=== PATIENT | female | born 1930 | race African-American/Black ===

== ENCOUNTER 2018-12-19 14:08 | Inpatient (IN) | payer MEDICARE ==
--- NOTE | 2018-12-19 14:21 | Emergency Department Report ---
Blank Doc - Documentation Documentation: 88 y o female presents to ed cc dizziness x 1 week also cc of coughing x 1 week hx of dementia grandon here acting as central service technician
--- NOTE | 2018-12-19 14:49 | Cat Scan Report ---
CT HEAD WITHOUT CONTRAST: HISTORY: Dizziness. TECHNIQUE: Sequential CT images without contrast. FINDINGS: Images obtained show bilateral prominence of the sulci and ventricles. There are no abnormal intra- or extra-axial blood or fluid collections. There are no focal masses or evidence of mass effect. The olsen white matter differentiation appears within normal limits. Regions of periventricular decreased attenuation are consistent with microangiopathic ischemic disease. The posterior fossa structures including the fourth ventricle, cerebellum, and brainstem appear normal. IMPRESSION: Evidence of atrophy and microangiopathic ischemic disease. No acute intracranial process noted.
[2018-12-19] MEDS ORDERED: NACL 0.9% 1000 ML IV ONE (15:05)
--- NOTE | 2018-12-19 15:26 | XRay Report ---
ROUTINE CHEST, TWO VIEWS: HISTORY: Lightheadedness, dizziness. Mild cardiomegaly and mild pulmonary venous congestion are identified. No obvious infiltrate, pleural effusion or pneumothorax. IMPRESSION: Mild cardiomegaly and pulmonary venous congestion.
[2018-12-19 15:34] LABS: Hematocrit 40.2 % (30.3-42.9); Hemoglobin 13.5 gm/dl (10.1-14.3); Mean Corpuscular HGB Conc 34 % (30-34); Mean Corpuscular Volume 94 fl (79-97); Red Blood Count 4.27 M/mm3 (3.65-5.03); Red Cell Distribution Width 15.3 % (13.2-15.2)
[2018-12-19 15:36] LABS: Platelet Count 275 K/mm3 (140-440)
[2018-12-19 15:49] LABS: Albumin 3.3 g/dL (3.9-5); BUN/Creatinine Ratio 22; Blood Urea Nitrogen 13 mg/dL (7-17); Calcium 8.9 mg/dL (8.4-10.2); Hemolysis Index 179
[2018-12-19 15:50] LABS: Alanine Aminotransferase 23 units/L (7-56)
[2018-12-19] MEDS: ROCEPHIN/NS 2 GM/100 ML 2 GM/100 ML BAG IV SCH (15:53)
[2018-12-19 16:11] LABS: Band Neutrophils # (Manual) 0.1 K/mm3; Basophils % (Manual) 0 % (0.0-1.8); Total Cells Counted 100
[2018-12-19 16:12] LABS: Anisocytosis 1+; Poikilocytosis Few
[2018-12-19 16:49] LABS: Bilirubin,Urine NEG (Negative); Blood,Urine NEG (Negative); Color,Urine Yellow (Yellow); Protein,Urine <15 mg/dL mg/dL (Negative); RBC,Urine < 1.0 /HPF (0.0-6.0); Urobilinogen,Urine < 2.0 mg/dL (<2.0)
[2018-12-19] MEDS ORDERED: PROVENTIL IH ONE (16:52)
[2018-12-19] MEDS ORDERED: ATROVENT IH ONE (16:52)
--- NOTE | 2018-12-19 16:55 | Emergency Department Report ---
ED General Adult HPI - General Chief complaint: Dizziness Stated complaint: LUNG PROBLEMS Time Seen by Provider: 12/19/18 14:16 Source: patient Mode of arrival: Ambulatory Limitations: Language Barrier - History of Present Illness Initial comments: Patient is a 88-year-old Yi woman who is complaining of one-week of cough and congestion with fever. Patient's cough is nonproductive. Patient also is complaining of some dizziness with standing. It is unknown whether the patient has a fever there's been no nausea vomiting. - Related Data Previous Rx's Medication Instructions Recorded Last Taken Type Aspirin EC [Aspirin Enteric Coated 81 mg PO QDAY #30 tablet.dr 06/29/13 Unknown Rx TAB] Bisoprolol [Zebeta] 5 mg PO DAILY #30 06/29/13 Unknown Rx Bisoprolol [Zebeta] 5 mg PO DAILY #30 tablet 06/29/13 Unknown Rx Simvastatin [Zocor TAB] 10 mg PO QHS #30 tablet 06/29/13 Unknown Rx Albuterol Sulfate [Ventolin HFA] 2 puff IH Q4H PRN #1 hfa.aer.ad 09/24/13 Unknown Rx Meclizine [Antivert] 25 mg PO Q8H PRN #20 tablet 09/24/13 Unknown Rx levoFLOXacin [Levaquin] 750 mg PO QDAY #7 tablet 09/24/13 Unknown Rx Allergies Allergy/AdvReac Type Severity Reaction Status Date / Time No Known Allergies Allergy Verified 12/19/18 14:13 ED Review of Systems ROS: Stated complaint: LUNG PROBLEMS Other details as noted in HPI Comment: All other systems reviewed and negative ED Past Medical Hx - Past Medical History Previous Medical History?: Yes Hx Hypertension: Yes Hx Heart Attack/AMI: No Hx Congestive Heart Failure: No Hx Diabetes: No Hx Deep Vein Thrombosis: No Hx Pulmonary Embolism: No Hx Liver Disease: No Hx Renal Disease: No Hx Sickle Cell Disease: No Hx Arthritis: No Hx Seizures: No Hx Kidney Stones: No Hx Asthma: No Hx COPD: No Hx Tuberculosis: No Hx Dementia: No Hx HIV: No Additional medical history: Recurrent ear infections, DEMENTIA - Surgical History Past Surgical History?: Yes Hx Coronary Stent: No Hx Pacemaker: No Hx Internal Defibrillator: No Additional Surgical History: cataracts - Social History Smoking Status: Never Smoker Substance Use Type: None - Medications Home Medications: Home Medications Medication Instructions Recorded Confirmed Last Taken Type Aspirin EC [Aspirin Enteric Coated 81 mg PO QDAY #30 tablet.dr 06/29/13 09/24/13 Unknown Rx TAB] Bisoprolol [Zebeta] 5 mg PO DAILY #30 06/29/13 09/24/13 Unknown Rx Bisoprolol [Zebeta] 5 mg PO DAILY #30 tablet 06/29/13 09/24/13 Unknown Rx Simvastatin [Zocor TAB] 10 mg PO QHS #30 tablet 06/29/13 09/24/13 Unknown Rx Albuterol Sulfate [Ventolin HFA] 2 puff IH Q4H PRN #1 hfa.aer.ad 09/24/13 Unknown Rx Meclizine [Antivert] 25 mg PO Q8H PRN #20 tablet 09/24/13 Unknown Rx levoFLOXacin [Levaquin] 750 mg PO QDAY #7 tablet 09/24/13 Unknown Rx ED Physical Exam - General Limitations: Language Barrier General appearance: alert, in no apparent distress - Head Head exam: Present: atraumatic, normocephalic - Eye Eye exam: Present: normal appearance - ENT ENT exam: Present: mucous membranes moist - Neck Neck exam: Present: normal inspection - Respiratory Respiratory exam: Present: normal lung sounds bilaterally, wheezes. Absent: respiratory distress, rales, rhonchi - Cardiovascular Cardiovascular Exam: Present: regular rate, normal rhythm. Absent: systolic murmur, diastolic murmur, rubs, gallop - GI/Abdominal GI/Abdominal exam: Present: soft, normal bowel sounds. Absent: distended, tenderness, guarding - Extremities Exam Extremities exam: Present: normal inspection - Back Exam Back exam: Present: normal inspection - Neurological Exam Neurological exam: Present: alert, oriented X3 - Psychiatric Psychiatric exam: Present: normal affect, normal mood - Skin Skin exam: Present: warm, dry, intact, normal color. Absent: rash ED Course Vital Signs 12/19/18 12/19/18 12/19/18 14:27 15:04 15:15 Temperature 100.2 F H Pulse Rate 107 H Respiratory 16 Rate Blood Pressure 171/91 160/86 O2 Sat by Pulse 97 98 97 Oximetry ED Medical Decision Making - Lab Data Result diagrams: 12/19/18 15:20 12/19/18 15:20 Lab Results 12/19/18 12/19/18 12/19/18 Range/Units 14:55 15:20 15:20 WBC 10.9 (4.5-11.0) K/mm3 RBC 4.27 (3.65-5.03) M/mm3 Hgb 13.5 (10.1-14.3) gm/dl Hct 40.2 (30.3-42.9) % MCV 94 (79-97) fl MCH 32 (28-32) pg MCHC 34 (30-34) % RDW 15.3 H (13.2-15.2) % Plt Count 275 (140-440) K/mm3 Add Manual Diff Complete Total Counted 100 Seg Neuts % (Manual) 76.0 H (40.0-70.0) % Band Neutrophils % 1.0 % Lymphocytes % (Manual) 12.0 L (13.4-35.0) % Reactive Lymphs % (Man) 0 % Monocytes % (Manual) 10.0 H (0.0-7.3) % Eosinophils % (Manual) 1.0 (0.0-4.3) % Basophils % (Manual) 0 (0.0-1.8) % Metamyelocytes % 0 % Myelocytes % 0 % Promyelocytes % 0 % Blast Cells % 0 % Nucleated RBC % Not Reportable Seg Neutrophils # Man 8.3 H (1.8-7.7) K/mm3 Band Neutrophils # 0.1 K/mm3 Lymphocytes # (Manual) 1.3 (1.2-5.4) K/mm3 Abs React Lymphs (Man) 0.0 K/mm3 Monocytes # (Manual) 1.1 H (0.0-0.8) K/mm3 Eosinophils # (Manual) 0.1 (0.0-0.4) K/mm3 Basophils # (Manual) 0.0 (0.0-0.1) K/mm3 Metamyelocytes # 0.0 K/mm3 Myelocytes # 0.0 K/mm3 Promyelocytes # 0.0 K/mm3 Blast Cells # 0.0 K/mm3 WBC Morphology Not Reportable Hypersegmented Neuts Not Reportable Hyposegmented Neuts Not Reportable Hypogranular Neuts Not Reportable Smudge Cells Not Reportable Toxic Granulation Not Reportable Toxic Vacuolation Not Reportable Dohle Bodies Not Reportable Pelger-Huet Anomaly Not Reportable Emily Rods Not Reportable Platelet Estimate Appears normal Clumped Platelets Not Reportable Plt Clumps, EDTA Not Reportable Large Platelets Not Reportable Giant Platelets Not Reportable Platelet Satelliting Not Reportable Plt Morphology Comment Not Reportable RBC Morphology Not Reportable Dimorphic RBCs Not Reportable Polychromasia Not Reportable Hypochromasia Not Reportable Poikilocytosis Few Anisocytosis 1+ Microcytosis Not Reportable Macrocytosis Not Reportable Spherocytes Not Reportable Pappenheimer Bodies Not Reportable Sickle Cells Not Reportable Target Cells Not Reportable Tear Drop Cells Not Reportable Ovalocytes Not Reportable Helmet Cells Not Reportable [place] Bodies Not Reportable [place] Rings Not Reportable Yesenia Cells Not Reportable Bite Cells Not Reportable Crenated Cell Not Reportable Elliptocytes Not Reportable Acanthocytes (Spur) Not Reportable Rouleaux Not Reportable Hemoglobin C Crystals Not Reportable Schistocytes Not Reportable Malaria parasites Not Reportable Darwin Bodies Not Reportable Hem Pathologist Commnt No Sodium 130 L (137-145) mmol/L Potassium 5.6 H (3.6-5.0) mmol/L Chloride 92.1 L (98-107) mmol/L Carbon Dioxide 25 (22-30) mmol/L Anion Gap 19 mmol/L BUN 13 (7-17) mg/dL Creatinine 0.6 L (0.7-1.2) mg/dL Estimated GFR > 60 ml/min BUN/Creatinine Ratio 22 % Glucose 93 (65-100) mg/dL Lactic Acid (0.7-2.0) mmol/L Calcium 8.9 (8.4-10.2) mg/dL Total Bilirubin 0.50 (0.1-1.2) mg/dL AST 47 H (5-40) units/L ALT 23 (7-56) units/L Alkaline Phosphatase 59 (35-129) units/L Total Protein 7.7 (6.3-8.2) g/dL Albumin 3.3 L (3.9-5) g/dL Albumin/Globulin Ratio 0.8 % Urine Bilirubin Neg (Negative) Urine RBC (Auto) < 1.0 (0.0-6.0) /HPF U Epithel Cells (Auto) 1.0 (0-13.0) /HPF 12/19/18 Range/Units 15:20 WBC (4.5-11.0) K/mm3 RBC (3.65-5.03) M/mm3 Hgb (10.1-14.3) gm/dl Hct (30.3-42.9) % MCV (79-97) fl MCH (28-32) pg MCHC (30-34) % RDW (13.2-15.2) % Plt Count (140-440) K/mm3 Add Manual Diff Total Counted Seg Neuts % (Manual) (40.0-70.0) % Band Neutrophils % % Lymphocytes % (Manual) (13.4-35.0) % Reactive Lymphs % (Man) % Monocytes % (Manual) (0.0-7.3) % Eosinophils % (Manual) (0.0-4.3) % Basophils % (Manual) (0.0-1.8) % Metamyelocytes % % Myelocytes % % Promyelocytes % % Blast Cells % % Nucleated RBC % Seg Neutrophils # Man (1.8-7.7) K/mm3 Band Neutrophils # K/mm3 Lymphocytes # (Manual) (1.2-5.4) K/mm3 Abs React Lymphs (Man) K/mm3 Monocytes # (Manual) (0.0-0.8) K/mm3 Eosinophils # (Manual) (0.0-0.4) K/mm3 Basophils # (Manual) (0.0-0.1) K/mm3 Metamyelocytes # K/mm3 Myelocytes # K/mm3 Promyelocytes # K/mm3 Blast Cells # K/mm3 WBC Morphology Hypersegmented Neuts Hyposegmented Neuts Hypogranular Neuts Smudge Cells Toxic Granulation Toxic Vacuolation Dohle Bodies Pelger-Huet Anomaly Emily Rods Platelet Estimate Clumped Platelets Plt Clumps, EDTA Large Platelets Giant Platelets Platelet Satelliting Plt Morphology Comment RBC Morphology Dimorphic RBCs Polychromasia Hypochromasia Poikilocytosis Anisocytosis Microcytosis Macrocytosis Spherocytes Pappenheimer Bodies Sickle Cells Target Cells Tear Drop Cells Ovalocytes Helmet Cells [place] Bodies [place] Rings [place] Cells Bite Cells Crenated Cell Elliptocytes Acanthocytes (Spur) Rouleaux Hemoglobin C Crystals Schistocytes Malaria parasites Darwin Bodies Hem Pathologist Commnt Sodium (137-145) mmol/L Potassium (3.6-5.0) mmol/L Chloride (98-107) mmol/L Carbon Dioxide (22-30) mmol/L Anion Gap mmol/L BUN (7-17) mg/dL Creatinine (0.7-1.2) mg/dL Estimated GFR ml/min BUN/Creatinine Ratio % Glucose (65-100) mg/dL Lactic Acid 1.30 (0.7-2.0) mmol/L Calcium (8.4-10.2) mg/dL Total Bilirubin (0.1-1.2) mg/dL AST (5-40) units/L ALT (7-56) units/L Alkaline Phosphatase (35-129) units/L Total Protein (6.3-8.2) g/dL Albumin (3.9-5) g/dL Albumin/Globulin Ratio % Urine Bilirubin (Negative) Urine RBC (Auto) (0.0-6.0) /HPF U Epithel Cells (Auto) (0-13.0) /HPF - Radiology Data interpreted by me: Patient has cardiomegaly. Patient has some pulmonary vascular congestion however there is some patchy infiltrate in the right lower lobe as well as the left lower lobe per my interpretation - Medical Decision Making Patient's x-ray was read as pulmonary vessel congestion with cardiomegaly however clinically the patient likely has infiltrate secondary to pneumonia and not CHF. Patient is febrile with wheeze and cough. Patient was hydrated was started on azithromycin and Rocephin. Patient is given albuterol Atrovent treatment the patient be admitted to the hospitalist service at this time. Critical care attestation.: If time is entered above; I have spent that time in minutes in the direct care of this critically ill patient, excluding procedure time. ED Disposition Clinical Impression: Bronchospasm Pneumonia Qualifiers: Pneumonia type: due to unspecified organism Laterality: bilateral Lung location: lower lobe of lung Qualified Code(s): J18.1 - Lobar pneumonia, unspecified organism Disposition: OP ADMIT IP TO THIS HOSP Is pt being admited?: Yes Does the pt Need Aspirin: No Condition: Stable Instructions: Bacterial Pneumonia (ED)
[2018-12-19] MEDS: ZITHROMAX 500 MG in NACL 0.9% 250ML 250 ML IV SCH (17:04)
[2018-12-19] MEDS ORDERED: NACL 0.9% 500 ML 500 ML ONE (19:14)
[2018-12-19] MEDS ORDERED: NACL 0.9% 1000 ML 1,000 ML ONE (20:04)
[2018-12-19] MEDS: NACL 0.9% 1000 ML 1,000 ML IV SCH (20:10)
[2018-12-19] MEDS ORDERED: TYLENOL PO PRN (21:23)
[2018-12-20] MEDS: NACL 0.9% 1000 ML 1,000 ML IV SCH (05:18)
--- NOTE | 2018-12-20 07:03 | Event Note ---
Date: 12/19/18 See H/p in reports Pneumonia
--- NOTE | 2018-12-20 07:22 | History and Physical Report ---
CHIEF COMPLAINT: Cough and congestion for 1 week associated with fever. HISTORY OF PRESENT ILLNESS: An 88-year-old female with history of hypertension, hyperlipidemia, asthma, who presents with cough, which is nonproductive and congestion and fever of 1 week duration. Has dizziness while standing. The patient has been having fever off and on for the last 1 week. No recent travel. No shortness of breath on lying down. PAST MEDICAL HISTORY: As mentioned, significant for hypertension and recurrent ear infections and mild to moderate dementia. PAST SURGICAL HISTORY: Cataract surgery. No cardiac stents. SOCIAL HISTORY: Does not smoke. FAMILY HISTORY: Hyperlipidemia. REVIEW OF SYSTEMS: Significant for cough, congestion, fever for 1 week duration. No history of congestive heart failure. A 14-point review of systems is done. CURRENT MEDICATIONS: Simvastatin 10 mg daily, bisoprolol 5 mg daily and aspirin 81 mg daily, albuterol inhaler 2 puffs q.i.d. PHYSICAL EXAMINATION: GENERAL: Elderly female lying comfortably. VITAL SIGNS: Temperature 100.1, pulse is 102, respirations are 17, sats are 95%, blood pressure 127/73. HEENT: Unremarkable. Pupils equal and reactive. NECK: Supple, no lymphadenopathy, no thyromegaly. LUNGS: Clear to auscultation and percussion. Scattered rhonchi. CARDIOVASCULAR: S1, S2 heard. No gallop, no murmur, no rub. Apical impulse in left fifth intercostal space and midclavicular line. ABDOMEN: Soft and benign. No hepatosplenomegaly. No guarding, no rigidity. Hernial orifices are normal. EXTREMITIES: Good pedal pulses. No pedal edema. CENTRAL NERVOUS SYSTEM: Alert and oriented x 4, nonfocal exam. SKIN: Normal. LABORATORY DATA: Significant for white count of 10,900, H and H is 13.5 and 40.2, platelet count is 275,000. Sodium is 130, potassium is 5.6, chloride is 92, BUN and creatinine is 39 and 0.6. Urine is normal. Chest x-ray shows mild cardiomegaly and pulmonary venous congestion. The head CT was normal. Evidence of atrophy and microangiopathic ischemic disease. EKG shows sinus tachycardia, heart rate of 107 per minute. ASSESSMENT AND PLAN: 1.Pneumonia. History is in favor of pneumonia. No congestive heart failure. We will get echocardiogram for ejection fraction. In the meantime, the patient will be treated as pneumonia with IV antibiotics, ceftriaxone, Zithromax. DuoNeb on a p.r.n. basis. 2. Hyperkalemia, treated with calcium gluconate and Kayexalate. 3. Hyperlipidemia. Continue statins. 4. Hypertension. Continue amlodipine and bisoprolol. 5. Deep venous thrombosis prophylaxis, Lovenox 30 mg subcutaneous daily and gastrointestinal prophylaxis. JOB# [id number] BERTHA/HELADIO SHAW
[2018-12-20] MEDS ORDERED: PERCOCET 5/325 PO PRN ×2 (07:40→08:00)
[2018-12-20] MEDS ORDERED: ZOFRAN IV PRN (08:00)
[2018-12-20] MEDS ORDERED: SODIUM CHLORIDE FLUSH SYRINGE 10 ML IV PRN (08:00)
[2018-12-20 08:37] LABS: Basophils % (Auto) 0.5 % (0.0-1.8); Eosinophils # (Auto) 0.1 K/mm3 (0.0-0.4); Eosinophils % (Auto) 2.2 % (0.0-4.3); Hematocrit 36.7 % (30.3-42.9); Hemoglobin 12.2 gm/dl (10.1-14.3); Lymphocytes # (Auto) 1.1 K/mm3 (1.2-5.4); Lymphocytes % (Auto) 20.8 % (13.4-35.0); Mean Corpuscular HGB Conc 33 % (30-34); Mean Corpuscular Volume 94 fl (79-97); Monocytes # (Auto) 0.9 K/mm3 (0.0-0.8); Monocytes % (Auto) 15.5 % (0.0-7.3); Platelet Count 229 K/mm3 (140-440); Red Blood Count 3.89 M/mm3 (3.65-5.03); Red Cell Distribution Width 15.3 % (13.2-15.2)
[2018-12-20 08:55] LABS: BUN/Creatinine Ratio 18; Blood Urea Nitrogen 11 mg/dL (7-17); Calcium 7.7 mg/dL (8.4-10.2); Hemolysis Index 13
[2018-12-20] MEDS: ZEBETA PO SCH (09:49)
[2018-12-20] MEDS: PEPCID IV SCH (09:50)
[2018-12-20] MEDS: TYLENOL PO PRN ×2 (09:51→21:41)
[2018-12-20] MEDS: NORVASC PO SCH (09:52)
[2018-12-20] MEDS: ZITHROMAX 500 MG in NACL 0.9% 250ML 250 ML IV SCH (09:52)
[2018-12-20] MEDS ORDERED: BISOPROLOL 5 MG PO SCH (10:00)
[2018-12-20] MEDS ORDERED: LASIX IV SCH (10:00)
[2018-12-20] MEDS: SODIUM CHLORIDE FLUSH SYRINGE 10 ML IV SCH ×2 (10:02→21:35)
--- NOTE | 2018-12-20 10:35 | Consultation ---
History of Present Illness Consult date: 12/20/18 Consult reason: congestive heart failure History of present illness: Patient is an 88 year old [place] woman who was sent to the emergency dep artment with shortness of breath and coughs. Patient has a history of chronic hypertension. There is no prior cardiac history and she has not had any recent cardiac workup. There were no reports of chest pain or palpitations. She has no lower extremity edema. A chest x-ray shows cardiomegaly with suspected right lower lobe infiltrate. An ECG shows sinus tachycardia, otherwise normal ECG. A cardiac consultation was requested for CHF evaluation. Medications and Allergies Allergies Allergy/AdvReac Type Severity Reaction Status Date / Time No Known Allergies Allergy Verified 12/19/18 14:13 Home Medications Medication Instructions Recorded Confirmed Last Taken Type Bisoprolol [Zebeta] 5 mg PO DAILY #30 tablet 06/29/13 12/19/18 Unknown Rx amLODIPine [Norvasc] 5 mg PO DAILY 12/19/18 12/19/18 Unknown History Active Meds: Active Medications Acetaminophen (Tylenol) 650 mg PO Q4H PRN PRN Reason: Pain MILD(1-3)/Fever >100.5/MURILLO Last Admin: 12/20/18 09:51 Dose: 650 mg Documented by: Amlodipine Besylate (Norvasc) 5 mg PO DAILY [facility] Last Admin: 12/20/18 09:52 Dose: 5 mg Documented by: Bisoprolol Fumarate (Zebeta (Nf)) 5 mg PO QDAY [facility] Last Admin: 12/20/18 09:49 Dose: 5 mg Documented by: Famotidine (Pepcid) 20 mg IV QDAY [facility] Last Admin: 12/20/18 09:50 Dose: 20 mg Documented by: Furosemide (Lasix) 40 mg IV Q12H [facility] Last Admin: 12/20/18 09:50 Dose: 40 mg Documented by: Azithromycin 500 mg/ Sodium (Chloride) 250 mls @ 250 mls/hr IV Q24HR [facility]; Protocol Last Admin: 12/20/18 09:52 Dose: 250 mls/hr Documented by: Ceftriaxone Sodium (Rocephin/Ns 2 Gm/100 Ml) 2 gm in 100 mls @ 200 mls/hr IV Q24HR [facility]; Protocol Last Admin: 12/19/18 15:53 Dose: 200 mls/hr Documented by: Ondansetron HCl (Zofran) 4 mg IV Q8H PRN PRN Reason: Nausea And Vomiting Oxycodone/Acetaminophen (Percocet 5/325) 1 tab PO Q6H PRN PRN Reason: Pain, Moderate (4-6) Pravastatin Sodium (Pravachol) 20 mg PO QHS [facility] Sodium Chloride (Sodium Chloride Flush Syringe 10 Ml) 10 ml IV BID [facility] Last Admin: 12/20/18 10:02 Dose: 10 ml Documented by: Sodium Chloride (Sodium Chloride Flush Syringe 10 Ml) 10 ml IV PRN PRN PRN Reason: LINE FLUSH Physical Examination Vital Signs Temp Pulse Resp BP Pulse Ox 100.2 F H 107 H 16 171/91 97 12/19/18 14:27 12/19/18 14:27 12/19/18 14:27 12/19/18 14:27 12/19/18 14:27 General appearance: no acute distress HEENT: Positive: PERRL Cardiac: Positive: Reg Rate and Rhythm Lungs: Positive: Decreased Breath Sounds, Other (RLL crackles ) Results 12/20/18 08:02 12/20/18 08:02 Cardiac Enzymes 12/19/18 Range/Units 15:20 AST 47 H (5-40) units/L CBC 12/19/18 12/20/18 Range/Units 15:20 08:02 WBC 10.9 5.5 (4.5-11.0) K/mm3 RBC 4.27 3.89 (3.65-5.03) M/mm3 Hgb 13.5 12.2 (10.1-14.3) gm/dl Hct 40.2 36.7 (30.3-42.9) % Plt Count 275 229 (140-440) K/mm3 Lymph # 1.1 L (1.2-5.4) K/mm3 Snyder # 0.9 H (0.0-0.8) K/mm3 Eos # 0.1 (0.0-0.4) K/mm3 Baso # 0.0 (0.0-0.1) K/mm3 Comprehensive Metabolic Panel 12/19/18 12/20/18 Range/Units 15:20 08:02 Sodium 130 L 133 L (137-145) mmol/L Potassium 5.6 H 4.1 D (3.6-5.0) mmol/L Chloride 92.1 L 103.0 (98-107) mmol/L Carbon Dioxide 25 21 L (22-30) mmol/L BUN 13 11 (7-17) mg/dL Creatinine 0.6 L 0.6 L (0.7-1.2) mg/dL Glucose 93 88 (65-100) mg/dL Calcium 8.9 7.7 L (8.4-10.2) mg/dL AST 47 H (5-40) units/L ALT 23 (7-56) units/L Alkaline Phosphatase 59 (35-129) units/L Total Protein 7.7 (6.3-8.2) g/dL Albumin 3.3 L (3.9-5) g/dL Assessment and Plan Pneumonia Hypertension Hyponatremia We will obtain an echocardiogram for LVEF assessment.
[2018-12-20] MEDS: ROCEPHIN/NS 2 GM/100 ML 2 GM/100 ML BAG IV SCH (13:57)
--- NOTE | 2018-12-20 15:55 | Progress Note ---
<ANUPAM ROTHMAN - Last Filed: 12/20/18 16:43> Assessment and Plan Assessment and plan: 88-year-old German female with history of HTN, hyperlipidemia, and Asthma presented to ED with c/o nonproductive cough, congestion, and intermittent fever for the past week. Also, she is c/o dizziness with standing. At the time of my examination patient is awake, alert and oriented x3 and sitting at the bedside. On auscultation bibasilar crackles are noted. Her family is also present at the bedside. Pneumonia CXR on 12/19 showed mild cardiomegaly and pulmonary venous congestion WBC on admission 10.9 WBC this morning 5.5 MAXIMUM TEMPERATURE 100.2 On azithromycin and Rocephin Cultures pending- NGTD Continue to monitor WBC Suspicion for CHF CXR on 12/19 showed mild cardiomegaly and pulmonary venous congestion Echo on 12/20 LVEF 55%-60%; mild aortic regurgitation; mild aortic leaflet calcification Hyperlipidemia Continue statin Hypertension Monitor BP Continue antihypertensive medication DVT prophylaxis On Lovenox History Interval history: 88-year-old German female with history of HTN, hyperlipidemia, and Asthma presented to ED with c/o nonproductive cough, congestion, and intermittent fever for the past week. Also, she is c/o dizziness with standing. She was admitted on 12/19 for suspected pneumonia. There were no acute overnight events Hospitalist Physical - Constitutional Vitals: Temp Pulse Resp BP Pulse Ox 99.1 F 108 H 20 142/71 95 12/20/18 13:43 12/20/18 13:43 12/20/18 13:43 12/20/18 13:43 12/20/18 13:43 General appearance: Present: no acute distress - EENT Eyes: Present: PERRL ENT: hearing intact - Neck Neck: Present: supple - Respiratory Respiratory effort: normal Respiratory: bilateral: rales (to bases) - Cardiovascular Rhythm: regular Heart Sounds: Present: S1 & S2 - Extremities Extremities: pulses intact, No edema Peripheral Pulses: within normal limits - Abdominal General gastrointestinal: soft, non-tender - Integumentary Integumentary: Present: warm, dry - Psychiatric Psychiatric: cooperative - Neurologic Neurologic: CNII-XII intact Results - Labs CBC & Chem 7: 12/20/18 08:02 12/20/18 08:02 Labs: Laboratory Last Values WBC 5.5 K/mm3 (4.5-11.0) 12/20/18 08:02 RBC 3.89 M/mm3 (3.65-5.03) 12/20/18 08:02 Hgb 12.2 gm/dl (10.1-14.3) 12/20/18 08:02 Hct 36.7 % (30.3-42.9) 12/20/18 08:02 MCV 94 fl (79-97) 12/20/18 08:02 MCH 31 pg (28-32) 12/20/18 08:02 MCHC 33 % (30-34) 12/20/18 08:02 RDW 15.3 % (13.2-15.2) H 12/20/18 08:02 Plt Count 229 K/mm3 (140-440) 12/20/18 08:02 Lymph % (Auto) 20.8 % (13.4-35.0) 12/20/18 08:02 [place] % (Auto) 15.5 % (0.0-7.3) H 12/20/18 08:02 Eos % (Auto) 2.2 % (0.0-4.3) 12/20/18 08:02 Baso % (Auto) 0.5 % (0.0-1.8) 12/20/18 08:02 Lymph # 1.1 K/mm3 (1.2-5.4) L 12/20/18 08:02 [place] # 0.9 K/mm3 (0.0-0.8) H 12/20/18 08:02 Eos # 0.1 K/mm3 (0.0-0.4) 12/20/18 08:02 Baso # 0.0 K/mm3 (0.0-0.1) 12/20/18 08:02 Add Manual Diff Complete 12/19/18 15:20 Total Counted 100 12/19/18 15:20 Seg Neutrophils % 61.0 % (40.0-70.0) 12/20/18 08:02 Seg Neuts % (Manual) 76.0 % (40.0-70.0) H 12/19/18 15:20 Band Neutrophils % 1.0 % 12/19/18 15:20 Lymphocytes % (Manual) 12.0 % (13.4-35.0) L 12/19/18 15:20 Reactive Lymphs % (Man) 0 % 12/19/18 15:20 Monocytes % (Manual) 10.0 % (0.0-7.3) H 12/19/18 15:20 Eosinophils % (Manual) 1.0 % (0.0-4.3) 12/19/18 15:20 Basophils % (Manual) 0 % (0.0-1.8) 12/19/18 15:20 Metamyelocytes % 0 % 12/19/18 15:20 Myelocytes % 0 % 12/19/18 15:20 Promyelocytes % 0 % 12/19/18 15:20 Blast Cells % 0 % 12/19/18 15:20 Nucleated RBC % Not Reportable 12/19/18 15:20 Seg Neutrophils # 3.4 K/mm3 (1.8-7.7) 12/20/18 08:02 Seg Neutrophils # Man 8.3 K/mm3 (1.8-7.7) H 12/19/18 15:20 Band Neutrophils # 0.1 K/mm3 12/19/18 15:20 Lymphocytes # (Manual) 1.3 K/mm3 (1.2-5.4) 12/19/18 15:20 Abs React Lymphs (Man) 0.0 K/mm3 12/19/18 15:20 Monocytes # (Manual) 1.1 K/mm3 (0.0-0.8) H 12/19/18 15:20 Eosinophils # (Manual) 0.1 K/mm3 (0.0-0.4) 12/19/18 15:20 Basophils # (Manual) 0.0 K/mm3 (0.0-0.1) 12/19/18 15:20 Metamyelocytes # 0.0 K/mm3 12/19/18 15:20 Myelocytes # 0.0 K/mm3 12/19/18 15:20 Promyelocytes # 0.0 K/mm3 12/19/18 15:20 Blast Cells # 0.0 K/mm3 12/19/18 15:20 WBC Morphology Not Reportable 12/19/18 15:20 Hypersegmented Neuts Not Reportable 12/19/18 15:20 Hyposegmented Neuts Not Reportable 12/19/18 15:20 Hypogranular Neuts Not Reportable 12/19/18 15:20 Smudge Cells Not Reportable 12/19/18 15:20 Toxic Granulation Not Reportable 12/19/18 15:20 Toxic Vacuolation Not Reportable 12/19/18 15:20 Dohle Bodies Not Reportable 12/19/18 15:20 Pelger-Huet Anomaly Not Reportable 12/19/18 15:20 Emily Rods Not Reportable 12/19/18 15:20 Platelet Estimate Appears normal 12/19/18 15:20 Clumped Platelets Not Reportable 12/19/18 15:20 Plt Clumps, EDTA Not Reportable 12/19/18 15:20 Large Platelets Not Reportable 12/19/18 15:20 Giant Platelets Not Reportable 12/19/18 15:20 Platelet Satelliting Not Reportable 12/19/18 15:20 Plt Morphology Comment Not Reportable 12/19/18 15:20 RBC Morphology Not Reportable 12/19/18 15:20 Dimorphic RBCs Not Reportable 12/19/18 15:20 Polychromasia Not Reportable 12/19/18 15:20 Hypochromasia Not Reportable 12/19/18 15:20 Poikilocytosis Few 12/19/18 15:20 Anisocytosis 1+ 12/19/18 15:20 Microcytosis Not Reportable 12/19/18 15:20 Macrocytosis Not Reportable 12/19/18 15:20 Spherocytes Not Reportable 12/19/18 15:20 Pappenheimer Bodies Not Reportable 12/19/18 15:20 Sickle Cells Not Reportable 12/19/18 15:20 Target Cells Not Reportable 12/19/18 15:20 Tear Drop Cells Not Reportable 12/19/18 15:20 Ovalocytes Not Reportable 12/19/18 15:20 Helmet Cells Not Reportable 12/19/18 15:20 [place] Bodies Not Reportable 12/19/18 15:20 [place] Rings Not Reportable 12/19/18 15:20 [place] Cells Not Reportable 12/19/18 15:20 Bite Cells Not Reportable 12/19/18 15:20 Crenated Cell Not Reportable 12/19/18 15:20 Elliptocytes Not Reportable 12/19/18 15:20 Acanthocytes (Spur) Not Reportable 12/19/18 15:20 Rouleaux Not Reportable 12/19/18 15:20 Hemoglobin C Crystals Not Reportable 12/19/18 15:20 Schistocytes Not Reportable 12/19/18 15:20 Malaria parasites Not Reportable 12/19/18 15:20 [place] Bodies Not Reportable 12/19/18 15:20 Hem Pathologist Commnt No 12/19/18 15:20 Sodium 133 mmol/L (137-145) L 12/20/18 08:02 Potassium 4.1 mmol/L (3.6-5.0) D 12/20/18 08:02 Chloride 103.0 mmol/L (98-107) 12/20/18 08:02 Carbon Dioxide 21 mmol/L (22-30) L 12/20/18 08:02 Anion Gap 13 mmol/L 12/20/18 08:02 BUN 11 mg/dL (7-17) 12/20/18 08:02 Creatinine 0.6 mg/dL (0.7-1.2) L 12/20/18 08:02 Estimated GFR > 60 ml/min 12/20/18 08:02 BUN/Creatinine Ratio 18 % 12/20/18 08:02 Glucose 88 mg/dL (65-100) 12/20/18 08:02 Lactic Acid 1.20 mmol/L (0.7-2.0) 12/19/18 18:16 Calcium 7.7 mg/dL (8.4-10.2) L 12/20/18 08:02 Total Bilirubin 0.50 mg/dL (0.1-1.2) 12/19/18 15:20 AST 47 units/L (5-40) H 12/19/18 15:20 ALT 23 units/L (7-56) 12/19/18 15:20 Alkaline Phosphatase 59 units/L (35-129) 12/19/18 15:20 Troponin T < 0.010 ng/mL (0.00-0.029) 12/20/18 11:09 NT-Pro-B Natriuret Pep 1699 pg/mL (0-900) H 12/19/18 17:24 Total Protein 7.7 g/dL (6.3-8.2) 12/19/18 15:20 Albumin 3.3 g/dL (3.9-5) L 12/19/18 15:20 Albumin/Globulin Ratio 0.8 % 12/19/18 15:20 Urine Color Yellow (Yellow) 12/19/18 14:55 Urine Turbidity Clear (Clear) 12/19/18 14:55 Urine pH 8.0 (5.0-7.0) H 12/19/18 14:55 Ur Specific [place] 1.008 (1.003-1.030) 12/19/18 14:55 Urine Protein <15 mg/dl mg/dL (Negative) 12/19/18 14:55 Urine Glucose (UA) Neg mg/dL (Negative) 12/19/18 14:55 Urine Ketones Neg mg/dL (Negative) 12/19/18 14:55 Urine Blood Neg (Negative) 12/19/18 14:55 Urine Nitrite Neg (Negative) 12/19/18 14:55 Urine Bilirubin Neg (Negative) 12/19/18 14:55 Urine Urobilinogen < 2.0 mg/dL (<2.0) 12/19/18 14:55 Ur Leukocyte Esterase Sm (Negative) 12/19/18 14:55 Urine WBC (Auto) 3.0 /HPF (0.0-6.0) 12/19/18 14:55 Urine RBC (Auto) < 1.0 /HPF (0.0-6.0) 12/19/18 14:55 U Epithel Cells (Auto) 1.0 /HPF (0-13.0) 12/19/18 14:55 Active Medications - Current Medications Current Medications: Generic Name Dose Route Start Last Admin Trade Name Terryq PRN Reason Stop Dose Admin Acetaminophen 650 mg 12/20/18 08:00 12/20/18 09:51 Tylenol PO 650 mg Q4H PRN Administration Pain MILD(1-3)/Fever >100.5/MURILLO Amlodipine Besylate 5 mg 12/20/18 10:00 12/20/18 09:52 Norvasc PO 5 mg DAILY SANTI Administration Bisoprolol Fumarate 5 mg 12/20/18 10:00 12/20/18 09:49 Zebeta (Nf) PO 5 mg QDAY SANTI Administration Famotidine 20 mg 12/20/18 10:00 12/20/18 09:50 Pepcid IV 20 mg QDAY SANTI Administration Furosemide 20 mg 12/21/18 10:00 Lasix PO QDAY SANTI Azithromycin 500 mg/ Sodium 250 mls @ 250 mls/hr 12/19/18 16:00 12/20/18 09:52 Chloride IV 250 mls/hr Q24HR SANTI Administration Protocol Ceftriaxone Sodium 2 gm in 100 mls @ 200 mls/hr 12/19/18 16:00 12/20/18 13:57 Rocephin/Ns 2 Gm/100 Ml IV 200 mls/hr Q24HR SANTI Administration Protocol Ondansetron HCl 4 mg 12/20/18 08:00 Zofran IV Q8H PRN Nausea And Vomiting Oxycodone/Acetaminophen 1 tab 12/20/18 08:00 Percocet 5/325 PO Q6H PRN Pain, Moderate (4-6) Pravastatin Sodium 20 mg 12/20/18 22:00 Pravachol PO QHS SANTI Sodium Chloride 10 ml 12/20/18 10:00 12/20/18 10:02 Sodium Chloride Flush Syringe 10 Ml IV 10 ml BID SANTI Administration Sodium Chloride 10 ml 12/20/18 08:00 Sodium Chloride Flush Syringe 10 Ml IV PRN PRN LINE FLUSH <BRUNILDA SCHMIDT M - Last Filed: 12/25/18 14:42> Assessment and Plan Assessment and plan: I saw and evaluated the patient. I agree with the findings and the plan of care as documented in the Nurse Practitioner's~note Hospitalist Physical - Constitutional Vitals: Temp Pulse Resp BP Pulse Ox 98.7 F 102 H 16 136/80 97 12/24/18 13:03 12/24/18 14:37 12/24/18 14:37 12/24/18 13:03 12/24/18 13:03 Results - Labs CBC & Chem 7: 12/20/18 08:02 12/24/18 06:04 Labs: Laboratory Last Values WBC 5.5 K/mm3 (4.5-11.0) 12/20/18 08:02 RBC 3.89 M/mm3 (3.65-5.03) 12/20/18 08:02 Hgb 12.2 gm/dl (10.1-14.3) 12/20/18 08:02 Hct 36.7 % (30.3-42.9) 12/20/18 08:02 MCV 94 fl (79-97) 12/20/18 08:02 MCH 31 pg (28-32) 12/20/18 08:02 MCHC 33 % (30-34) 12/20/18 08:02 RDW 15.3 % (13.2-15.2) H 12/20/18 08:02 Plt Count 229 K/mm3 (140-440) 12/20/18 08:02 Lymph % (Auto) 20.8 % (13.4-35.0) 12/20/18 08:02 [place] % (Auto) 15.5 % (0.0-7.3) H 12/20/18 08:02 Eos % (Auto) 2.2 % (0.0-4.3) 12/20/18 08:02 Baso % (Auto) 0.5 % (0.0-1.8) 12/20/18 08:02 Lymph # 1.1 K/mm3 (1.2-5.4) L 12/20/18 08:02 [place] # 0.9 K/mm3 (0.0-0.8) H 12/20/18 08:02 Eos # 0.1 K/mm3 (0.0-0.4) 12/20/18 08:02 Baso # 0.0 K/mm3 (0.0-0.1) 12/20/18 08:02 Add Manual Diff Complete 12/19/18 15:20 Total Counted 100 12/19/18 15:20 Seg Neutrophils % 61.0 % (40.0-70.0) 12/20/18 08:02 Seg Neuts % (Manual) 76.0 % (40.0-70.0) H 12/19/18 15:20 Band Neutrophils % 1.0 % 12/19/18 15:20 Lymphocytes % (Manual) 12.0 % (13.4-35.0) L 12/19/18 15:20 Reactive Lymphs % (Man) 0 % 12/19/18 15:20 Monocytes % (Manual) 10.0 % (0.0-7.3) H 12/19/18 15:20 Eosinophils % (Manual) 1.0 % (0.0-4.3) 12/19/18 15:20 Basophils % (Manual) 0 % (0.0-1.8) 12/19/18 15:20 Metamyelocytes % 0 % 12/19/18 15:20 Myelocytes % 0 % 12/19/18 15:20 Promyelocytes % 0 % 12/19/18 15:20 Blast Cells % 0 % 12/19/18 15:20 Nucleated RBC % Not Reportable 12/19/18 15:20 Seg Neutrophils # 3.4 K/mm3 (1.8-7.7) 12/20/18 08:02 Seg Neutrophils # Man 8.3 K/mm3 (1.8-7.7) H 12/19/18 15:20 Band Neutrophils # 0.1 K/mm3 12/19/18 15:20 Lymphocytes # (Manual) 1.3 K/mm3 (1.2-5.4) 12/19/18 15:20 Abs React Lymphs (Man) 0.0 K/mm3 12/19/18 15:20 Monocytes # (Manual) 1.1 K/mm3 (0.0-0.8) H 12/19/18 15:20 Eosinophils # (Manual) 0.1 K/mm3 (0.0-0.4) 12/19/18 15:20 Basophils # (Manual) 0.0 K/mm3 (0.0-0.1) 12/19/18 15:20 Metamyelocytes # 0.0 K/mm3 12/19/18 15:20 Myelocytes # 0.0 K/mm3 12/19/18 15:20 Promyelocytes # 0.0 K/mm3 12/19/18 15:20 Blast Cells # 0.0 K/mm3 12/19/18 15:20 WBC Morphology Not Reportable 12/19/18 15:20 Hypersegmented Neuts Not Reportable 12/19/18 15:20 Hyposegmented Neuts Not Reportable 12/19/18 15:20 Hypogranular Neuts Not Reportable 12/19/18 15:20 Smudge Cells Not Reportable 12/19/18 15:20 Toxic Granulation Not Reportable 12/19/18 15:20 Toxic Vacuolation Not Reportable 12/19/18 15:20 Dohle Bodies Not Reportable 12/19/18 15:20 Pelger-Huet Anomaly Not Reportable 12/19/18 15:20 Emily Rods Not Reportable 12/19/18 15:20 Platelet Estimate Appears normal 12/19/18 15:20 Clumped Platelets Not Reportable 12/19/18 15:20 Plt Clumps, EDTA Not Reportable 12/19/18 15:20 Large Platelets Not Reportable 12/19/18 15:20 Giant Platelets Not Reportable 12/19/18 15:20 Platelet Satelliting Not Reportable 12/19/18 15:20 Plt Morphology Comment Not Reportable 12/19/18 15:20 RBC Morphology Not Reportable 12/19/18 15:20 Dimorphic RBCs Not Reportable 12/19/18 15:20 Polychromasia Not Reportable 12/19/18 15:20 Hypochromasia Not Reportable 12/19/18 15:20 Poikilocytosis Few 12/19/18 15:20 Anisocytosis 1+ 12/19/18 15:20 Microcytosis Not Reportable 12/19/18 15:20 Macrocytosis Not Reportable 12/19/18 15:20 Spherocytes Not Reportable 12/19/18 15:20 Pappenheimer Bodies Not Reportable 12/19/18 15:20 Sickle Cells Not Reportable 12/19/18 15:20 Target Cells Not Reportable 12/19/18 15:20 Tear Drop Cells Not Reportable 12/19/18 15:20 Ovalocytes Not Reportable 12/19/18 15:20 Helmet Cells Not Reportable 12/19/18 15:20 [place] Bodies Not Reportable 12/19/18 15:20 [place] Not Reportable 12/19/18 15:20 [place] Cells Not Reportable 12/19/18 15:20 Bite Cells Not Reportable 12/19/18 15:20 Crenated Cell Not Reportable 12/19/18 15:20 Elliptocytes Not Reportable 12/19/18 15:20 Acanthocytes (Spur) Not Reportable 12/19/18 15:20 Rouleaux Not Reportable 12/19/18 15:20 Hemoglobin C Crystals Not Reportable 12/19/18 15:20 Schistocytes Not Reportable 12/19/18 15:20 Malaria parasites Not Reportable 12/19/18 15:20 [place] Bodies Not Reportable 12/19/18 15:20 Hem Pathologist Commnt No 12/19/18 15:20 Sodium 127 mmol/L (137-145) L 12/24/18 06:04 Potassium 3.4 mmol/L (3.6-5.0) L 12/24/18 06:04 Chloride 90.0 mmol/L (98-107) L 12/24/18 06:04 Carbon Dioxide 25 mmol/L (22-30) 12/24/18 06:04 Anion Gap 15 mmol/L 12/24/18 06:04 BUN 7 mg/dL (7-17) 12/24/18 06:04 Creatinine 0.5 mg/dL (0.7-1.2) L 12/24/18 06:04 Estimated GFR > 60 ml/min 12/24/18 06:04 BUN/Creatinine Ratio 14 % 12/24/18 06:04 Glucose 103 mg/dL (65-100) H 12/24/18 06:04 Lactic Acid 1.20 mmol/L (0.7-2.0) 12/19/18 18:16 Calcium 8.3 mg/dL (8.4-10.2) L 12/24/18 06:04 Phosphorus 2.20 mg/dL (2.5-4.5) L 12/24/18 06:04 Magnesium 2.00 mg/dL (1.7-2.3) 12/24/18 06:04 Total Bilirubin 0.60 mg/dL (0.1-1.2) 12/22/18 05:54 AST 31 units/L (5-40) 12/22/18 05:54 ALT 18 units/L (7-56) 12/22/18 05:54 Alkaline Phosphatase 52 units/L (35-129) 12/22/18 05:54 Total Creatine Kinase 225 units/L (30-135) H 12/22/18 18:15 CK-MB (CK-2) 5.1 ng/mL (0.0-4.0) H 12/22/18 18:15 CK-MB (CK-2) Rel Index 2.2 (0-4) 12/22/18 18:15 Troponin T < 0.010 ng/mL (0.00-0.029) 12/22/18 18:15 NT-Pro-B Natriuret Pep 1699 pg/mL (0-900) H 12/19/18 17:24 Total Protein 6.9 g/dL (6.3-8.2) 12/22/18 05:54 Albumin 2.7 g/dL (3.9-5) L 12/22/18 05:54 Albumin/Globulin Ratio 0.6 % 12/22/18 05:54 Urine Color Yellow (Yellow) 12/19/18 14:55 Urine Turbidity Clear (Clear) 12/19/18 14:55 Urine pH 8.0 (5.0-7.0) H 12/19/18 14:55 Ur Specific [place] 1.008 (1.003-1.030) 12/19/18 14:55 Urine Protein <15 mg/dl mg/dL (Negative) 12/19/18 14:55 Urine Glucose (UA) Neg mg/dL (Negative) 12/19/18 14:55 Urine Ketones Neg mg/dL (Negative) 12/19/18 14:55 Urine Blood Neg (Negative) 12/19/18 14:55 Urine Nitrite Neg (Negative) 12/19/18 14:55 Urine Bilirubin Neg (Negative) 12/19/18 14:55 Urine Urobilinogen < 2.0 mg/dL (<2.0) 12/19/18 14:55 Ur Leukocyte Esterase Sm (Negative) 12/19/18 14:55 Urine WBC (Auto) 3.0 /HPF (0.0-6.0) 12/19/18 14:55 Urine RBC (Auto) < 1.0 /HPF (0.0-6.0) 12/19/18 14:55 U Epithel Cells (Auto) 1.0 /HPF (0-13.0) 12/19/18 14:55
[2018-12-20] MEDS: PRAVACHOL PO SCH (21:40)
--- NOTE | 2018-12-20 22:45 | Progress Note ---
Assessment and Plan Pneumonia - management per primary Hypertension - maximize antihypertensive therapy Hyponatremia We will obtain an echocardiogram for LVEF assessment. Subjective Date of service: 12/21/18 Interval history: No acute events. Resting comfortably. No chest pain or SOB. Objective Vital Signs Temp Pulse Resp BP BP Pulse Ox 12/20/18 21:41 20 12/20/18 19:43 98.8 F 87 20 138/59 96 12/20/18 13:43 99.1 F 108 H 20 142/71 95 12/20/18 09:49 71 139/67 12/20/18 07:49 100.0 F H 71 22 139/67 99 12/20/18 02:29 98.7 F 55 L 16 118/47 94 12/19/18 23:00 20 - Physical Examination HEENT: Positive: PERRL - Labs and Meds CBC 12/20/18 Range/Units 08:02 WBC 5.5 (4.5-11.0) K/mm3 RBC 3.89 (3.65-5.03) M/mm3 Hgb 12.2 (10.1-14.3) gm/dl Hct 36.7 (30.3-42.9) % Plt Count 229 (140-440) K/mm3 Lymph # 1.1 L (1.2-5.4) K/mm3 [place] # 0.9 H (0.0-0.8) K/mm3 Eos # 0.1 (0.0-0.4) K/mm3 Baso # 0.0 (0.0-0.1) K/mm3 Comprehensive Metabolic Panel 12/20/18 Range/Units 08:02 Sodium 133 L (137-145) mmol/L Potassium 4.1 D (3.6-5.0) mmol/L Chloride 103.0 (98-107) mmol/L Carbon Dioxide 21 L (22-30) mmol/L BUN 11 (7-17) mg/dL Creatinine 0.6 L (0.7-1.2) mg/dL Glucose 88 (65-100) mg/dL Calcium 7.7 L (8.4-10.2) mg/dL
--- NOTE | 2018-12-21 08:05 | Progress Note ---
Assessment and Plan Assessment and plan: 88-year-old [place] female with history of HTN, hyperlipidemia, and admitted through emergency room with nonproductive cough, congestion, and intermittent fever eating managed with possible pneumonia --Community-acquired pneumonia; continue empiric antibiotics Follow cultures, cough medicine. --Possible congestive heart failure Elevated BNP, pulmonary congestion; Echo ejection fraction 55-60% Cardiology following --Dyslipidemia; on statin, low cholesterol diet --Hypertension; moderate control Continue current antihypertensives and when necessary medications --DVT prophylaxis; on Lovenox --Gen. Debility; nutrition supplements and supportive care, PT OT --[id number]-[id number] malnutrition /hypoalbuminemia nutrition supplements and supportive care --Full CODE STATUS Monitor the patient closely and adjust management as needed History Interval history: Patient seen and examined medical records reviewed Feels slightly better no new complaints Vital signs noted Alert and awake responding appropriately. Not in acute distress Hospitalist Physical - Constitutional Vitals: Temp Pulse Resp BP Pulse Ox 102.0 F H 90 20 159/70 91 12/21/18 07:52 12/21/18 07:52 12/21/18 07:52 12/21/18 07:52 12/21/18 07:52 General appearance: Present: no acute distress, well-nourished - EENT Eyes: Present: PERRL, EOM intact - Neck Neck: Present: supple, normal ROM - Respiratory Respiratory effort: normal Respiratory: bilateral: diminished, rales, negative: rhonchi, wheezing - Cardiovascular Rhythm: regular Heart Sounds: Present: S1 & S2 - Extremities Extremities: no ischemia, No edema - Abdominal General gastrointestinal: soft, non-tender, non-distended, normal bowel sounds - Integumentary Integumentary: Present: clear, warm - Psychiatric Psychiatric: appropriate mood/affect, cooperative - Neurologic Neurologic: CNII-XII intact, moves all extremities Results - Labs CBC & Chem 7: 12/20/18 08:02 12/20/18 08:02 Labs: Laboratory Last Values WBC 5.5 K/mm3 (4.5-11.0) 12/20/18 08:02 RBC 3.89 M/mm3 (3.65-5.03) 12/20/18 08:02 Hgb 12.2 gm/dl (10.1-14.3) 12/20/18 08:02 Hct 36.7 % (30.3-42.9) 12/20/18 08:02 MCV 94 fl (79-97) 12/20/18 08:02 MCH 31 pg (28-32) 12/20/18 08:02 MCHC 33 % (30-34) 12/20/18 08:02 RDW 15.3 % (13.2-15.2) H 12/20/18 08:02 Plt Count 229 K/mm3 (140-440) 12/20/18 08:02 Lymph % (Auto) 20.8 % (13.4-35.0) 12/20/18 08:02 [place] % (Auto) 15.5 % (0.0-7.3) H 12/20/18 08:02 Eos % (Auto) 2.2 % (0.0-4.3) 12/20/18 08:02 Baso % (Auto) 0.5 % (0.0-1.8) 12/20/18 08:02 Lymph # 1.1 K/mm3 (1.2-5.4) L 12/20/18 08:02 [place] # 0.9 K/mm3 (0.0-0.8) H 12/20/18 08:02 Eos # 0.1 K/mm3 (0.0-0.4) 12/20/18 08:02 Baso # 0.0 K/mm3 (0.0-0.1) 12/20/18 08:02 Add Manual Diff Complete 12/19/18 15:20 Total Counted 100 12/19/18 15:20 Seg Neutrophils % 61.0 % (40.0-70.0) 12/20/18 08:02 Seg Neuts % (Manual) 76.0 % (40.0-70.0) H 12/19/18 15:20 Band Neutrophils % 1.0 % 12/19/18 15:20 Lymphocytes % (Manual) 12.0 % (13.4-35.0) L 12/19/18 15:20 Reactive Lymphs % (Man) 0 % 12/19/18 15:20 Monocytes % (Manual) 10.0 % (0.0-7.3) H 12/19/18 15:20 Eosinophils % (Manual) 1.0 % (0.0-4.3) 12/19/18 15:20 Basophils % (Manual) 0 % (0.0-1.8) 12/19/18 15:20 Metamyelocytes % 0 % 12/19/18 15:20 Myelocytes % 0 % 12/19/18 15:20 Promyelocytes % 0 % 12/19/18 15:20 Blast Cells % 0 % 12/19/18 15:20 Nucleated RBC % Not Reportable 12/19/18 15:20 Seg Neutrophils # 3.4 K/mm3 (1.8-7.7) 12/20/18 08:02 Seg Neutrophils # Man 8.3 K/mm3 (1.8-7.7) H 12/19/18 15:20 Band Neutrophils # 0.1 K/mm3 12/19/18 15:20 Lymphocytes # (Manual) 1.3 K/mm3 (1.2-5.4) 12/19/18 15:20 Abs React Lymphs (Man) 0.0 K/mm3 12/19/18 15:20 Monocytes # (Manual) 1.1 K/mm3 (0.0-0.8) H 12/19/18 15:20 Eosinophils # (Manual) 0.1 K/mm3 (0.0-0.4) 12/19/18 15:20 Basophils # (Manual) 0.0 K/mm3 (0.0-0.1) 12/19/18 15:20 Metamyelocytes # 0.0 K/mm3 12/19/18 15:20 Myelocytes # 0.0 K/mm3 12/19/18 15:20 Promyelocytes # 0.0 K/mm3 12/19/18 15:20 Blast Cells # 0.0 K/mm3 12/19/18 15:20 WBC Morphology Not Reportable 12/19/18 15:20 Hypersegmented Neuts Not Reportable 12/19/18 15:20 Hyposegmented Neuts Not Reportable 12/19/18 15:20 Hypogranular Neuts Not Reportable 12/19/18 15:20 Smudge Cells Not Reportable 12/19/18 15:20 Toxic Granulation Not Reportable 12/19/18 15:20 Toxic Vacuolation Not Reportable 12/19/18 15:20 Dohle Bodies Not Reportable 12/19/18 15:20 Pelger-Huet Anomaly Not Reportable 12/19/18 15:20 Emily Rods Not Reportable 12/19/18 15:20 Platelet Estimate Appears normal 12/19/18 15:20 Clumped Platelets Not Reportable 12/19/18 15:20 Plt Clumps, EDTA Not Reportable 12/19/18 15:20 Large Platelets Not Reportable 12/19/18 15:20 Giant Platelets Not Reportable 12/19/18 15:20 Platelet Satelliting Not Reportable 12/19/18 15:20 Plt Morphology Comment Not Reportable 12/19/18 15:20 RBC Morphology Not Reportable 12/19/18 15:20 Dimorphic RBCs Not Reportable 12/19/18 15:20 Polychromasia Not Reportable 12/19/18 15:20 Hypochromasia Not Reportable 12/19/18 15:20 Poikilocytosis Few 12/19/18 15:20 Anisocytosis 1+ 12/19/18 15:20 Microcytosis Not Reportable 12/19/18 15:20 Macrocytosis Not Reportable 12/19/18 15:20 Spherocytes Not Reportable 12/19/18 15:20 Pappenheimer Bodies Not Reportable 12/19/18 15:20 Sickle Cells Not Reportable 12/19/18 15:20 Target Cells Not Reportable 12/19/18 15:20 Tear Drop Cells Not Reportable 12/19/18 15:20 Ovalocytes Not Reportable 12/19/18 15:20 Helmet Cells Not Reportable 12/19/18 15:20 [place] Bodies Not Reportable 12/19/18 15:20 [place] Rings Not Reportable 12/19/18 15:20 [place] Cells Not Reportable 12/19/18 15:20 Bite Cells Not Reportable 12/19/18 15:20 Crenated Cell Not Reportable 12/19/18 15:20 Elliptocytes Not Reportable 12/19/18 15:20 Acanthocytes (Spur) Not Reportable 12/19/18 15:20 Rouleaux Not Reportable 12/19/18 15:20 Hemoglobin C Crystals Not Reportable 12/19/18 15:20 Schistocytes Not Reportable 12/19/18 15:20 Malaria parasites Not Reportable 12/19/18 15:20 Darwin Bodies Not Reportable 12/19/18 15:20 Hem Pathologist Commnt No 12/19/18 15:20 Sodium 133 mmol/L (137-145) L 12/20/18 08:02 Potassium 4.1 mmol/L (3.6-5.0) D 12/20/18 08:02 Chloride 103.0 mmol/L (98-107) 12/20/18 08:02 Carbon Dioxide 21 mmol/L (22-30) L 12/20/18 08:02 Anion Gap 13 mmol/L 12/20/18 08:02 BUN 11 mg/dL (7-17) 12/20/18 08:02 Creatinine 0.6 mg/dL (0.7-1.2) L 12/20/18 08:02 Estimated GFR > 60 ml/min 12/20/18 08:02 BUN/Creatinine Ratio 18 % 12/20/18 08:02 Glucose 88 mg/dL (65-100) 12/20/18 08:02 Lactic Acid 1.20 mmol/L (0.7-2.0) 12/19/18 18:16 Calcium 7.7 mg/dL (8.4-10.2) L 12/20/18 08:02 Phosphorus 2.70 mg/dL (2.5-4.5) 12/21/18 05:09 Magnesium 2.20 mg/dL (1.7-2.3) 12/21/18 05:09 Total Bilirubin 0.50 mg/dL (0.1-1.2) 12/19/18 15:20 AST 47 units/L (5-40) H 12/19/18 15:20 ALT 23 units/L (7-56) 12/19/18 15:20 Alkaline Phosphatase 59 units/L (35-129) 12/19/18 15:20 Troponin T < 0.010 ng/mL (0.00-0.029) 12/20/18 11:09 NT-Pro-B Natriuret Pep 1699 pg/mL (0-900) H 12/19/18 17:24 Total Protein 7.7 g/dL (6.3-8.2) 12/19/18 15:20 Albumin 3.3 g/dL (3.9-5) L 12/19/18 15:20 Albumin/Globulin Ratio 0.8 % 12/19/18 15:20 Urine Color Yellow (Yellow) 12/19/18 14:55 Urine Turbidity Clear (Clear) 12/19/18 14:55 Urine pH 8.0 (5.0-7.0) H 12/19/18 14:55 Ur Specific [place] 1.008 (1.003-1.030) 12/19/18 14:55 Urine Protein <15 mg/dl mg/dL (Negative) 12/19/18 14:55 Urine Glucose (UA) Neg mg/dL (Negative) 12/19/18 14:55 Urine Ketones Neg mg/dL (Negative) 12/19/18 14:55 Urine Blood Neg (Negative) 12/19/18 14:55 Urine Nitrite Neg (Negative) 12/19/18 14:55 Urine Bilirubin Neg (Negative) 12/19/18 14:55 Urine Urobilinogen < 2.0 mg/dL (<2.0) 12/19/18 14:55 Ur Leukocyte Esterase Sm (Negative) 12/19/18 14:55 Urine WBC (Auto) 3.0 /HPF (0.0-6.0) 12/19/18 14:55 Urine RBC (Auto) < 1.0 /HPF (0.0-6.0) 12/19/18 14:55 U Epithel Cells (Auto) 1.0 /HPF (0-13.0) 12/19/18 14:55 Active Medications - Current Medications Current Medications: Generic Name Dose Route Start Last Admin Trade Name Freq PRN Reason Stop Dose Admin Acetaminophen 650 mg 12/20/18 08:00 12/20/18 21:41 Tylenol PO 650 mg Q4H PRN Administration Pain MILD(1-3)/Fever >100.5/MURILLO Amlodipine Besylate 5 mg 12/20/18 10:00 12/20/18 09:52 Norvasc PO 5 mg DAILY SANTI Administration Bisoprolol Fumarate 5 mg 12/20/18 10:00 12/20/18 09:49 Zebeta (Nf) PO 5 mg QDAY SANTI Administration Famotidine 20 mg 12/20/18 10:00 12/20/18 09:50 Pepcid IV 20 mg QDAY SANTI Administration Furosemide 20 mg 12/21/18 10:00 Lasix PO QDAY SANTI Azithromycin 500 mg/ Sodium 250 mls @ 250 mls/hr 12/19/18 16:00 12/20/18 09:52 Chloride IV 250 mls/hr Q24HR SANTI Administration Protocol Ceftriaxone Sodium 2 gm in 100 mls @ 200 mls/hr 12/19/18 16:00 12/20/18 13:57 Rocephin/Ns 2 Gm/100 Ml IV 200 mls/hr Q24HR SANTI Administration Protocol Ondansetron HCl 4 mg 12/20/18 08:00 Zofran IV Q8H PRN Nausea And Vomiting Oxycodone/Acetaminophen 1 tab 12/20/18 08:00 Percocet 5/325 PO Q6H PRN Pain, Moderate (4-6) Pravastatin Sodium 20 mg 12/20/18 22:00 12/20/18 21:40 Pravachol PO 20 mg QHS SANTI Administration Sodium Chloride 10 ml 12/20/18 10:00 12/20/18 21:35 Sodium Chloride Flush Syringe 10 Ml IV 10 ml BID SANTI Administration Sodium Chloride 10 ml 12/20/18 08:00 Sodium Chloride Flush Syringe 10 Ml IV PRN PRN LINE FLUSH
[2018-12-21] MEDS: TYLENOL PO PRN ×3 (08:20→21:12)
--- NOTE | 2018-12-21 08:54 | XRay Report ---
PROCEDURE: XR CHEST ROUTINE 2V TECHNIQUE: PA and lateral chest radiographs HISTORY: sob COMPARISONS: 12/19/2018 FINDINGS: No mediastinal shift. Mild cardiomegaly. Patchy right upper lung and bibasilar opacities and diffuse interstitial prominence. No definite pleural effusion. No pneumothorax or acute skeletal finding. IMPRESSION: Patchy opacities in both lungs and diffuse interstitial prominence appears similar to slightly worse compared to 12/19/2018 and may be due to edema and/or infection This document is electronically signed by Paul Young MD., December 21 2018 08:53:06 AM ET
[2018-12-21] MEDS: LASIX PO SCH (09:14)
[2018-12-21] MEDS: PEPCID IV SCH (09:14)
[2018-12-21] MEDS: ZEBETA PO SCH (09:14)
[2018-12-21] MEDS: NORVASC PO SCH (09:14)
[2018-12-21] MEDS: ROCEPHIN/NS 2 GM/100 ML 2 GM/100 ML BAG IV SCH (09:15)
[2018-12-21] MEDS: ZITHROMAX 500 MG in NACL 0.9% 250ML 250 ML IV SCH (09:16)
[2018-12-21] MEDS: SODIUM CHLORIDE FLUSH SYRINGE 10 ML IV SCH ×2 (09:16→21:13)
[2018-12-21] MEDS: TESSALON PERLES PO SCH ×2 (15:07→21:12)
[2018-12-21] MEDS: PRAVACHOL PO SCH (21:13)
[2018-12-21] MEDS ORDERED: PROVENTIL IH PRN (21:55)
[2018-12-22] MEDS: TYLENOL PO PRN ×4 (01:15→14:23)
[2018-12-22] MEDS: TESSALON PERLES PO SCH ×3 (05:50→22:13)
[2018-12-22 07:47] LABS: Alanine Aminotransferase 18 units/L (7-56); Albumin 2.7 g/dL (3.9-5); BUN/Creatinine Ratio 15; Blood Urea Nitrogen 9 mg/dL (7-17); Calcium 7.9 mg/dL (8.4-10.2); Hemolysis Index 23
[2018-12-22] MEDS: DUONEB *Not for PRN Use IH SCH ×3 (08:36→21:15)
--- NOTE | 2018-12-22 09:42 | Progress Note ---
Assessment and Plan Pneumonia - management per primary Hypertension - maximize antihypertensive therapy Hyponatremia We will obtain an echocardiogram for LVEF assessment. Echo has still not been performed - reorder Subjective Date of service: 12/22/18 Interval history: No acute events. Resting comfortably. No chest pain or SOB. Objective Vital Signs Temp Pulse Pulse Pulse Resp Resp Resp 12/22/18 02:41 97.7 F 77 20 12/21/18 22:01 83 36 H 12/21/18 21:49 12/21/18 20:28 102.7 F H 89 20 12/21/18 19:35 89 20 12/21/18 19:00 97.8 F 12/21/18 16:56 100.6 F H 12/21/18 14:24 101.8 F H 20 12/21/18 14:22 74 12/21/18 14:00 99.7 F H 12/21/18 10:00 90 20 BP Pulse Ox 12/22/18 02:41 123/48 92 12/21/18 22:01 12/21/18 21:49 96 12/21/18 20:28 175/76 91 12/21/18 19:35 91 12/21/18 19:00 12/21/18 16:56 12/21/18 14:24 138/63 12/21/18 14:22 91 12/21/18 14:00 12/21/18 10:00 95 - Physical Examination HEENT: Positive: PERRL - Labs and Meds Cardiac Enzymes 12/22/18 Range/Units 05:54 AST 31 (5-40) units/L Comprehensive Metabolic Panel 12/22/18 Range/Units 05:54 Sodium 127 L (137-145) mmol/L Potassium 3.9 (3.6-5.0) mmol/L Chloride 98.6 (98-107) mmol/L Carbon Dioxide 17 L (22-30) mmol/L BUN 9 (7-17) mg/dL Creatinine 0.6 L (0.7-1.2) mg/dL Glucose 100 (65-100) mg/dL Calcium 7.9 L (8.4-10.2) mg/dL AST 31 (5-40) units/L ALT 18 (7-56) units/L Alkaline Phosphatase 52 (35-129) units/L Total Protein 6.9 (6.3-8.2) g/dL Albumin 2.7 L (3.9-5) g/dL
[2018-12-22] MEDS: ZITHROMAX 500 MG in NACL 0.9% 250ML 250 ML IV SCH (10:23)
[2018-12-22] MEDS: ROCEPHIN/NS 2 GM/100 ML 2 GM/100 ML BAG IV SCH (10:23)
[2018-12-22] MEDS: LASIX PO SCH (10:26)
[2018-12-22] MEDS: NORVASC PO SCH (10:26)
[2018-12-22] MEDS: ZEBETA PO SCH (10:27)
[2018-12-22] MEDS: SODIUM CHLORIDE FLUSH SYRINGE 10 ML IV SCH ×2 (10:27→22:14)
[2018-12-22] MEDS: PEPCID IV SCH (10:28)
--- NOTE | 2018-12-22 10:29 | Progress Note ---
Assessment and Plan Assessment and plan: 88-year-old [place] female with history of HTN, hyperlipidemia, and admitted through emergency room with nonproductive cough, congestion, and intermittent fever being managed possible pneumonia --Atypical chest pain; EKG no acute ST-T changes, cardiac enzymes negative, mild elevation of CK Closely monitor, cardiology evaluation if needed --Community-acquired pneumonia; continue empiric antibiotics Follow cultures, cough medicine. --Possible congestive heart failure /possible diastolic congestive heart failure Elevated BNP, pulmonary congestion;, Echo ejection fraction 55-60% Cardiology following --Dyslipidemia; on statin, low cholesterol diet --Hypertension; moderate control Continue current antihypertensives and when necessary medications --DVT prophylaxis; on Lovenox --Gen. Debility; nutrition supplements and supportive care, PT OT --[id number] malnutrition /hypoalbuminemia nutrition supplements and supportive care --Full CODE STATUS Monitor the patient closely and adjust management as needed Plan of care discussed. Her bilingual daughter at the bedside I also discussed in detail with patient's granddaughter who is a physician administrative assistant Ms. Miramontes [phone], patient's condition and treatment plan imaging studies And answered all her questions History Interval history: Patient seen and examined medical decision Patient spiked temperature MAXIMUM TEMPERATURE 102F Alert and awake in mild distress Vital signs reviewed Patient's daughter at the bedside Hospitalist Physical - Constitutional Vitals: Temp Pulse Resp BP Pulse Ox 97.7 F 64 20 142/67 92 12/22/18 02:41 12/22/18 10:26 12/22/18 08:36 12/22/18 10:26 12/22/18 02:41 General appearance: Present: no acute distress, well-nourished - EENT Eyes: Present: PERRL, EOM intact - Neck Neck: Present: supple, normal ROM - Respiratory Respiratory effort: normal Respiratory: bilateral: diminished, rhonchi, negative: rales, wheezing - Cardiovascular Rhythm: regular Heart Sounds: Present: S1 & S2 - Extremities Extremities: no ischemia, No edema - Abdominal General gastrointestinal: soft, non-tender, non-distended, normal bowel sounds - Integumentary Integumentary: Present: clear, warm - Psychiatric Psychiatric: appropriate mood/affect, cooperative - Neurologic Neurologic: CNII-XII intact, moves all extremities Results - Labs CBC & Chem 7: 12/20/18 08:02 12/22/18 05:54 Labs: Laboratory Last Values WBC 5.5 K/mm3 (4.5-11.0) 12/20/18 08:02 RBC 3.89 M/mm3 (3.65-5.03) 12/20/18 08:02 Hgb 12.2 gm/dl (10.1-14.3) 12/20/18 08:02 Hct 36.7 % (30.3-42.9) 12/20/18 08:02 MCV 94 fl (79-97) 12/20/18 08:02 MCH 31 pg (28-32) 12/20/18 08:02 MCHC 33 % (30-34) 12/20/18 08:02 RDW 15.3 % (13.2-15.2) H 12/20/18 08:02 Plt Count 229 K/mm3 (140-440) 12/20/18 08:02 Lymph % (Auto) 20.8 % (13.4-35.0) 12/20/18 08:02 [place] % (Auto) 15.5 % (0.0-7.3) H 12/20/18 08:02 Eos % (Auto) 2.2 % (0.0-4.3) 12/20/18 08:02 Baso % (Auto) 0.5 % (0.0-1.8) 12/20/18 08:02 Lymph # 1.1 K/mm3 (1.2-5.4) L 12/20/18 08:02 [place] # 0.9 K/mm3 (0.0-0.8) H 12/20/18 08:02 Eos # 0.1 K/mm3 (0.0-0.4) 12/20/18 08:02 Baso # 0.0 K/mm3 (0.0-0.1) 12/20/18 08:02 Add Manual Diff Complete 12/19/18 15:20 Total Counted 100 12/19/18 15:20 Seg Neutrophils % 61.0 % (40.0-70.0) 12/20/18 08:02 Seg Neuts % (Manual) 76.0 % (40.0-70.0) H 12/19/18 15:20 Band Neutrophils % 1.0 % 12/19/18 15:20 Lymphocytes % (Manual) 12.0 % (13.4-35.0) L 12/19/18 15:20 Reactive Lymphs % (Man) 0 % 12/19/18 15:20 Monocytes % (Manual) 10.0 % (0.0-7.3) H 12/19/18 15:20 Eosinophils % (Manual) 1.0 % (0.0-4.3) 12/19/18 15:20 Basophils % (Manual) 0 % (0.0-1.8) 12/19/18 15:20 Metamyelocytes % 0 % 12/19/18 15:20 Myelocytes % 0 % 12/19/18 15:20 Promyelocytes % 0 % 12/19/18 15:20 Blast Cells % 0 % 12/19/18 15:20 Nucleated RBC % Not Reportable 12/19/18 15:20 Seg Neutrophils # 3.4 K/mm3 (1.8-7.7) 12/20/18 08:02 Seg Neutrophils # Man 8.3 K/mm3 (1.8-7.7) H 12/19/18 15:20 Band Neutrophils # 0.1 K/mm3 12/19/18 15:20 Lymphocytes # (Manual) 1.3 K/mm3 (1.2-5.4) 12/19/18 15:20 Abs React Lymphs (Man) 0.0 K/mm3 12/19/18 15:20 Monocytes # (Manual) 1.1 K/mm3 (0.0-0.8) H 12/19/18 15:20 Eosinophils # (Manual) 0.1 K/mm3 (0.0-0.4) 12/19/18 15:20 Basophils # (Manual) 0.0 K/mm3 (0.0-0.1) 12/19/18 15:20 Metamyelocytes # 0.0 K/mm3 12/19/18 15:20 Myelocytes # 0.0 K/mm3 12/19/18 15:20 Promyelocytes # 0.0 K/mm3 12/19/18 15:20 Blast Cells # 0.0 K/mm3 12/19/18 15:20 WBC Morphology Not Reportable 12/19/18 15:20 Hypersegmented Neuts Not Reportable 12/19/18 15:20 Hyposegmented Neuts Not Reportable 12/19/18 15:20 Hypogranular Neuts Not Reportable 12/19/18 15:20 Smudge Cells Not Reportable 12/19/18 15:20 Toxic Granulation Not Reportable 12/19/18 15:20 Toxic Vacuolation Not Reportable 12/19/18 15:20 Dohle Bodies Not Reportable 12/19/18 15:20 Pelger-Huet Anomaly Not Reportable 12/19/18 15:20 Emily Rods Not Reportable 12/19/18 15:20 Platelet Estimate Appears normal 12/19/18 15:20 Clumped Platelets Not Reportable 12/19/18 15:20 Plt Clumps, EDTA Not Reportable 12/19/18 15:20 Large Platelets Not Reportable 12/19/18 15:20 Giant Platelets Not Reportable 12/19/18 15:20 Platelet Satelliting Not Reportable 12/19/18 15:20 Plt Morphology Comment Not Reportable 12/19/18 15:20 RBC Morphology Not Reportable 12/19/18 15:20 Dimorphic RBCs Not Reportable 12/19/18 15:20 Polychromasia Not Reportable 12/19/18 15:20 Hypochromasia Not Reportable 12/19/18 15:20 Poikilocytosis Few 12/19/18 15:20 Anisocytosis 1+ 12/19/18 15:20 Microcytosis Not Reportable 12/19/18 15:20 Macrocytosis Not Reportable 12/19/18 15:20 Spherocytes Not Reportable 12/19/18 15:20 Pappenheimer Bodies Not Reportable 12/19/18 15:20 Sickle Cells Not Reportable 12/19/18 15:20 Target Cells Not Reportable 12/19/18 15:20 Tear Drop Cells Not Reportable 12/19/18 15:20 Ovalocytes Not Reportable 12/19/18 15:20 Helmet Cells Not Reportable 12/19/18 15:20 [place] Bodies Not Reportable 12/19/18 15:20 [place] Rings Not Reportable 12/19/18 15:20 [place] Cells Not Reportable 12/19/18 15:20 Bite Cells Not Reportable 12/19/18 15:20 Crenated Cell Not Reportable 12/19/18 15:20 Elliptocytes Not Reportable 12/19/18 15:20 Acanthocytes (Spur) Not Reportable 12/19/18 15:20 Rouleaux Not Reportable 12/19/18 15:20 Hemoglobin C Crystals Not Reportable 12/19/18 15:20 Schistocytes Not Reportable 12/19/18 15:20 Malaria parasites Not Reportable 12/19/18 15:20 [place] Bodies Not Reportable 12/19/18 15:20 Hem Pathologist Commnt No 12/19/18 15:20 Sodium 127 mmol/L (137-145) L 12/22/18 05:54 Potassium 3.9 mmol/L (3.6-5.0) 12/22/18 05:54 Chloride 98.6 mmol/L (98-107) 12/22/18 05:54 Carbon Dioxide 17 mmol/L (22-30) L 12/22/18 05:54 Anion Gap 15 mmol/L 12/22/18 05:54 BUN 9 mg/dL (7-17) 12/22/18 05:54 Creatinine 0.6 mg/dL (0.7-1.2) L 12/22/18 05:54 Estimated GFR > 60 ml/min 12/22/18 05:54 BUN/Creatinine Ratio 15 % 12/22/18 05:54 Glucose 100 mg/dL (65-100) 12/22/18 05:54 Lactic Acid 1.20 mmol/L (0.7-2.0) 12/19/18 18:16 Calcium 7.9 mg/dL (8.4-10.2) L 12/22/18 05:54 Phosphorus 2.70 mg/dL (2.5-4.5) 12/21/18 05:09 Magnesium 2.20 mg/dL (1.7-2.3) 12/21/18 05:09 Total Bilirubin 0.60 mg/dL (0.1-1.2) 12/22/18 05:54 AST 31 units/L (5-40) 12/22/18 05:54 ALT 18 units/L (7-56) 12/22/18 05:54 Alkaline Phosphatase 52 units/L (35-129) 12/22/18 05:54 Troponin T < 0.010 ng/mL (0.00-0.029) 12/20/18 11:09 NT-Pro-B Natriuret Pep 1699 pg/mL (0-900) H 12/19/18 17:24 Total Protein 6.9 g/dL (6.3-8.2) 12/22/18 05:54 Albumin 2.7 g/dL (3.9-5) L 12/22/18 05:54 Albumin/Globulin Ratio 0.6 % 12/22/18 05:54 Urine Color Yellow (Yellow) 12/19/18 14:55 Urine Turbidity Clear (Clear) 12/19/18 14:55 Urine pH 8.0 (5.0-7.0) H 12/19/18 14:55 Ur Specific [place] 1.008 (1.003-1.030) 12/19/18 14:55 Urine Protein <15 mg/dl mg/dL (Negative) 12/19/18 14:55 Urine Glucose (UA) Neg mg/dL (Negative) 12/19/18 14:55 Urine Ketones Neg mg/dL (Negative) 12/19/18 14:55 Urine Blood Neg (Negative) 12/19/18 14:55 Urine Nitrite Neg (Negative) 12/19/18 14:55 Urine Bilirubin Neg (Negative) 12/19/18 14:55 Urine Urobilinogen < 2.0 mg/dL (<2.0) 12/19/18 14:55 Ur Leukocyte Esterase Sm (Negative) 12/19/18 14:55 Urine WBC (Auto) 3.0 /HPF (0.0-6.0) 12/19/18 14:55 Urine RBC (Auto) < 1.0 /HPF (0.0-6.0) 12/19/18 14:55 U Epithel Cells (Auto) 1.0 /HPF (0-13.0) 12/19/18 14:55 Active Medications - Current Medications Current Medications: Generic Name Dose Route Start Last Admin Trade Name Freq PRN Reason Stop Dose Admin Acetaminophen 650 mg 12/20/18 08:00 12/22/18 05:51 Tylenol PO 650 mg Q4H PRN Administration Pain MILD(1-3)/Fever >100.5/MURILLO Albuterol 2.5 mg 12/21/18 21:55 12/21/18 22:01 Proventil IH 2.5 mg Q4HRT PRN Administration Shortness Of Breath Albuterol/Ipratropium 1 ampul 12/22/18 08:00 12/22/18 08:36 Duoneb *Not For Prn Use* IH 1 ampul TIDRT SANTI Administration Amlodipine Besylate 5 mg 12/20/18 10:00 12/22/18 10:26 Norvasc PO 5 mg DAILY SANTI Administration Benzonatate 100 mg 12/21/18 14:00 12/22/18 05:50 Tessalon Perles PO 100 mg Q8HR SANTI Administration Bisoprolol Fumarate 5 mg 12/20/18 10:00 12/22/18 10:27 Zebeta (Nf) PO 5 mg QDAY SANTI Administration Famotidine 20 mg 12/20/18 10:00 12/22/18 10:28 Pepcid IV 20 mg QDAY SANTI Administration Furosemide 20 mg 12/21/18 10:00 12/22/18 10:26 Lasix PO 20 mg QDAY SANTI Administration Azithromycin 500 mg/ Sodium 250 mls @ 250 mls/hr 12/19/18 16:00 12/22/18 10:23 Chloride IV 250 mls/hr Q24HR SANTI Administration Protocol Ceftriaxone Sodium 2 gm in 100 mls @ 200 mls/hr 12/19/18 16:00 12/22/18 10:23 Rocephin/Ns 2 Gm/100 Ml IV 200 mls/hr Q24HR SANTI Administration Protocol Ondansetron HCl 4 mg 12/20/18 08:00 Zofran IV Q8H PRN Nausea And Vomiting Oxycodone/Acetaminophen 1 tab 12/20/18 08:00 Percocet 5/325 PO Q6H PRN Pain, Moderate (4-6) Pravastatin Sodium 20 mg 12/20/18 22:00 12/21/18 21:13 Pravachol PO 20 mg QHS SANTI Administration Sodium Chloride 10 ml 12/20/18 10:00 12/22/18 10:27 Sodium Chloride Flush Syringe 10 Ml IV 10 ml BID SANTI Administration Sodium Chloride 10 ml 12/20/18 08:00 Sodium Chloride Flush Syringe 10 Ml IV PRN PRN LINE FLUSH
[2018-12-22] MEDS ORDERED: APRESOLINE IV PRN (17:39)
[2018-12-22 18:41] LABS: Creatine Kinase MB 5.1 ng/mL (0.0-4.0)
[2018-12-22] MEDS: PRAVACHOL PO SCH (22:13)
[2018-12-23] MEDS: TYLENOL PO PRN ×3 (05:55→17:34)
[2018-12-23] MEDS: TESSALON PERLES PO SCH ×4 (05:56→23:01)
[2018-12-23] MEDS: DUONEB *Not for PRN Use IH SCH ×3 (08:05→21:30)
[2018-12-23] MEDS: ZEBETA PO SCH (09:00)
[2018-12-23] MEDS: LASIX PO SCH (09:00)
[2018-12-23] MEDS: NORVASC PO SCH (09:00)
[2018-12-23 09:13] LABS: BUN/Creatinine Ratio 13; Blood Urea Nitrogen 9 mg/dL (7-17); Hemolysis Index 15
[2018-12-23] MEDS ORDERED: LASIX IV ONE (10:00)
[2018-12-23] MEDS: LOVENOX SUB-Q SCH (10:21)
[2018-12-23] MEDS: PEPCID PO SCH ×2 (10:22→21:25)
[2018-12-23] MEDS: SODIUM CHLORIDE FLUSH SYRINGE 10 ML IV SCH ×2 (10:22→21:27)
[2018-12-23] MEDS: ROCEPHIN/NS 2 GM/100 ML 2 GM/100 ML BAG IV SCH (10:23)
--- NOTE | 2018-12-23 10:49 | Progress Note ---
Assessment and Plan Pneumonia Hypertension Hyponatremia An echocardiogram reveals a normal LV systolic function, EF 55-60%. Conservative cardiac management. Subjective Date of service: 12/23/18 Interval history: Patient does not speak Stateless. Family member is at bedside. No cardiac complaints reported. Objective Vital Signs Temp Pulse Pulse Pulse Resp Resp BP 12/23/18 08:19 68 18 12/23/18 08:07 12/23/18 08:05 66 18 12/23/18 07:56 99.7 F H 71 18 124/44 12/23/18 02:47 83 12/23/18 02:45 100.0 F H 22 144/63 12/22/18 22:35 12/22/18 21:35 80 20 12/22/18 20:03 98.2 F 24 171/71 12/22/18 19:35 24 12/22/18 18:25 68 168/76 12/22/18 17:18 99 F 68 22 168/76 12/22/18 15:00 98.9 F 69 18 12/22/18 13:57 74 20 12/22/18 13:47 68 20 12/22/18 11:00 64 BP Pulse Ox 12/23/18 08:19 12/23/18 08:07 92 12/23/18 08:05 12/23/18 07:56 96 12/23/18 02:47 97 12/23/18 02:45 12/22/18 22:35 96 12/22/18 21:35 12/22/18 20:03 12/22/18 19:35 95 12/22/18 18:25 12/22/18 17:18 97 12/22/18 15:00 140/60 98 12/22/18 13:57 12/22/18 13:47 12/22/18 11:00 99 - Physical Examination General: No Apparent Distress HEENT: Positive: PERRL Cardiac: Positive: Reg Rate and Rhythm Lungs: Positive: Decreased Breath Sounds Neuro: Positive: Grossly Intact Extremities: Absent: edema - Labs and Meds Cardiac Enzymes 12/22/18 Range/Units 18:15 CK-MB (CK-2) 5.1 H (0.0-4.0) ng/mL Comprehensive Metabolic Panel 12/23/18 Range/Units 08:50 Sodium 125 L (137-145) mmol/L Potassium 3.7 (3.6-5.0) mmol/L Chloride 92.7 L (98-107) mmol/L Carbon Dioxide 23 (22-30) mmol/L BUN 9 (7-17) mg/dL Creatinine 0.7 (0.7-1.2) mg/dL Glucose 159 H (65-100) mg/dL Calcium 8.0 L (8.4-10.2) mg/dL
[2018-12-23] MEDS: ZITHROMAX 500 MG in NACL 0.9% 250ML 250 ML IV SCH (10:53)
--- NOTE | 2018-12-23 18:39 | Progress Note ---
Assessment and Plan Assessment and plan: 88-year-old [place] female with history of HTN, hyperlipidemia, and admitted through emergency room with nonproductive cough, congestion, and intermittent fever being managed possible pneumonia --Atypical chest pain; EKG no acute ST-T changes, cardiac enzymes negative, mild elevation of CK Closely monitor, cardiology evaluation if needed --Community-acquired pneumonia; continue empiric antibiotics Follow cultures, cough medicine. --Hypernatremia, patient does plenty of water and fluids Fluids restriction, closely monitor electrolytes --No evidence of congestive heart failure; Echo ejection fraction 55-60%,Cardiology following --Dyslipidemia; on statin, low cholesterol diet --Hypertension; moderate control Continue current antihypertensives and when necessary medications --DVT prophylaxis; on Lovenox --Gen. Debility; nutrition supplements and supportive care, PT OT --Kifr-[id number] malnutrition /hypoalbuminemia nutrition supplements and supportive care --Full CODE STATUS Disposition; possible discharge in 1-2 days if her sodium level and pneumonia improve History Interval history: Sincerely and examined medical records reviewed No new events reported by the nursing staff Patient alert and awake Not in acute distress Vital signs noted Hospitalist Physical - Constitutional Vitals: Temp Pulse Resp BP Pulse Ox 99.1 F 65 20 130/61 97 12/23/18 13:28 12/23/18 13:47 12/23/18 17:34 12/23/18 13:28 12/23/18 13:28 General appearance: Present: no acute distress, well-nourished - EENT Eyes: Present: PERRL, EOM intact - Neck Neck: Present: supple, normal ROM - Respiratory Respiratory effort: normal Respiratory: bilateral: diminished, rhonchi, negative: rales, wheezing - Cardiovascular Rhythm: regular Heart Sounds: Present: S1 & S2 - Extremities Extremities: no ischemia, No edema - Abdominal General gastrointestinal: soft, non-tender, non-distended - Integumentary Integumentary: Present: clear, warm - Psychiatric Psychiatric: appropriate mood/affect, cooperative - Neurologic Neurologic: CNII-XII intact, moves all extremities Results - Labs CBC & Chem 7: 12/20/18 08:02 12/23/18 08:50 Labs: Laboratory Last Values WBC 5.5 K/mm3 (4.5-11.0) 12/20/18 08:02 RBC 3.89 M/mm3 (3.65-5.03) 12/20/18 08:02 Hgb 12.2 gm/dl (10.1-14.3) 12/20/18 08:02 Hct 36.7 % (30.3-42.9) 12/20/18 08:02 MCV 94 fl (79-97) 12/20/18 08:02 MCH 31 pg (28-32) 12/20/18 08:02 MCHC 33 % (30-34) 12/20/18 08:02 RDW 15.3 % (13.2-15.2) H 12/20/18 08:02 Plt Count 229 K/mm3 (140-440) 12/20/18 08:02 Lymph % (Auto) 20.8 % (13.4-35.0) 12/20/18 08:02 Sanders % (Auto) 15.5 % (0.0-7.3) H 12/20/18 08:02 Eos % (Auto) 2.2 % (0.0-4.3) 12/20/18 08:02 Baso % (Auto) 0.5 % (0.0-1.8) 12/20/18 08:02 Lymph # 1.1 K/mm3 (1.2-5.4) L 12/20/18 08:02 Sanders # 0.9 K/mm3 (0.0-0.8) H 12/20/18 08:02 Eos # 0.1 K/mm3 (0.0-0.4) 12/20/18 08:02 Baso # 0.0 K/mm3 (0.0-0.1) 12/20/18 08:02 Add Manual Diff Complete 12/19/18 15:20 Total Counted 100 12/19/18 15:20 Seg Neutrophils % 61.0 % (40.0-70.0) 12/20/18 08:02 Seg Neuts % (Manual) 76.0 % (40.0-70.0) H 12/19/18 15:20 Band Neutrophils % 1.0 % 12/19/18 15:20 Lymphocytes % (Manual) 12.0 % (13.4-35.0) L 12/19/18 15:20 Reactive Lymphs % (Man) 0 % 12/19/18 15:20 Monocytes % (Manual) 10.0 % (0.0-7.3) H 12/19/18 15:20 Eosinophils % (Manual) 1.0 % (0.0-4.3) 12/19/18 15:20 Basophils % (Manual) 0 % (0.0-1.8) 12/19/18 15:20 Metamyelocytes % 0 % 12/19/18 15:20 Myelocytes % 0 % 12/19/18 15:20 Promyelocytes % 0 % 12/19/18 15:20 Blast Cells % 0 % 12/19/18 15:20 Nucleated RBC % Not Reportable 12/19/18 15:20 Seg Neutrophils # 3.4 K/mm3 (1.8-7.7) 12/20/18 08:02 Seg Neutrophils # Man 8.3 K/mm3 (1.8-7.7) H 12/19/18 15:20 Band Neutrophils # 0.1 K/mm3 12/19/18 15:20 Lymphocytes # (Manual) 1.3 K/mm3 (1.2-5.4) 12/19/18 15:20 Abs React Lymphs (Man) 0.0 K/mm3 12/19/18 15:20 Monocytes # (Manual) 1.1 K/mm3 (0.0-0.8) H 12/19/18 15:20 Eosinophils # (Manual) 0.1 K/mm3 (0.0-0.4) 12/19/18 15:20 Basophils # (Manual) 0.0 K/mm3 (0.0-0.1) 12/19/18 15:20 Metamyelocytes # 0.0 K/mm3 12/19/18 15:20 Myelocytes # 0.0 K/mm3 12/19/18 15:20 Promyelocytes # 0.0 K/mm3 12/19/18 15:20 Blast Cells # 0.0 K/mm3 12/19/18 15:20 WBC Morphology Not Reportable 12/19/18 15:20 Hypersegmented Neuts Not Reportable 12/19/18 15:20 Hyposegmented Neuts Not Reportable 12/19/18 15:20 Hypogranular Neuts Not Reportable 12/19/18 15:20 Smudge Cells Not Reportable 12/19/18 15:20 Toxic Granulation Not Reportable 12/19/18 15:20 Toxic Vacuolation Not Reportable 12/19/18 15:20 Dohle Bodies Not Reportable 12/19/18 15:20 Pelger-Huet Anomaly Not Reportable 12/19/18 15:20 Emily Rods Not Reportable 12/19/18 15:20 Platelet Estimate Appears normal 12/19/18 15:20 Clumped Platelets Not Reportable 12/19/18 15:20 Plt Clumps, EDTA Not Reportable 12/19/18 15:20 Large Platelets Not Reportable 12/19/18 15:20 Giant Platelets Not Reportable 12/19/18 15:20 Platelet Satelliting Not Reportable 12/19/18 15:20 Plt Morphology Comment Not Reportable 12/19/18 15:20 RBC Morphology Not Reportable 12/19/18 15:20 Dimorphic RBCs Not Reportable 12/19/18 15:20 Polychromasia Not Reportable 12/19/18 15:20 Hypochromasia Not Reportable 12/19/18 15:20 Poikilocytosis Few 12/19/18 15:20 Anisocytosis 1+ 12/19/18 15:20 Microcytosis Not Reportable 12/19/18 15:20 Macrocytosis Not Reportable 12/19/18 15:20 Spherocytes Not Reportable 12/19/18 15:20 Pappenheimer Bodies Not Reportable 12/19/18 15:20 Sickle Cells Not Reportable 12/19/18 15:20 Target Cells Not Reportable 12/19/18 15:20 Tear Drop Cells Not Reportable 12/19/18 15:20 Ovalocytes Not Reportable 12/19/18 15:20 Helmet Cells Not Reportable 12/19/18 15:20 Ford-Lyle Bodies Not Reportable 12/19/18 15:20 [place] Rings Not Reportable 12/19/18 15:20 Yesenia Cells Not Reportable 12/19/18 15:20 Bite Cells Not Reportable 12/19/18 15:20 Crenated Cell Not Reportable 12/19/18 15:20 Elliptocytes Not Reportable 12/19/18 15:20 Acanthocytes (Spur) Not Reportable 12/19/18 15:20 Rouleaux Not Reportable 12/19/18 15:20 Hemoglobin C Crystals Not Reportable 12/19/18 15:20 Schistocytes Not Reportable 12/19/18 15:20 Malaria parasites Not Reportable 12/19/18 15:20 Darwin Bodies Not Reportable 12/19/18 15:20 Hem Pathologist Commnt No 12/19/18 15:20 Sodium 125 mmol/L (137-145) L 12/23/18 08:50 Potassium 3.7 mmol/L (3.6-5.0) 12/23/18 08:50 Chloride 92.7 mmol/L (98-107) L 12/23/18 08:50 Carbon Dioxide 23 mmol/L (22-30) 12/23/18 08:50 Anion Gap 13 mmol/L 12/23/18 08:50 BUN 9 mg/dL (7-17) 12/23/18 08:50 Creatinine 0.7 mg/dL (0.7-1.2) 12/23/18 08:50 Estimated GFR > 60 ml/min 12/23/18 08:50 BUN/Creatinine Ratio 13 % 12/23/18 08:50 Glucose 159 mg/dL (65-100) H 12/23/18 08:50 Lactic Acid 1.20 mmol/L (0.7-2.0) 12/19/18 18:16 Calcium 8.0 mg/dL (8.4-10.2) L 12/23/18 08:50 Phosphorus 2.70 mg/dL (2.5-4.5) 12/21/18 05:09 Magnesium 2.20 mg/dL (1.7-2.3) 12/21/18 05:09 Total Bilirubin 0.60 mg/dL (0.1-1.2) 12/22/18 05:54 AST 31 units/L (5-40) 12/22/18 05:54 ALT 18 units/L (7-56) 12/22/18 05:54 Alkaline Phosphatase 52 units/L (35-129) 12/22/18 05:54 Total Creatine Kinase 225 units/L (30-135) H 12/22/18 18:15 CK-MB (CK-2) 5.1 ng/mL (0.0-4.0) H 12/22/18 18:15 CK-MB (CK-2) Rel Index 2.2 (0-4) 12/22/18 18:15 Troponin T < 0.010 ng/mL (0.00-0.029) 12/22/18 18:15 NT-Pro-B Natriuret Pep 1699 pg/mL (0-900) H 12/19/18 17:24 Total Protein 6.9 g/dL (6.3-8.2) 12/22/18 05:54 Albumin 2.7 g/dL (3.9-5) L 12/22/18 05:54 Albumin/Globulin Ratio 0.6 % 12/22/18 05:54 Urine Color Yellow (Yellow) 12/19/18 14:55 Urine Turbidity Clear (Clear) 12/19/18 14:55 Urine pH 8.0 (5.0-7.0) H 12/19/18 14:55 Ur Specific Leroy 1.008 (1.003-1.030) 12/19/18 14:55 Urine Protein <15 mg/dl mg/dL (Negative) 12/19/18 14:55 Urine Glucose (UA) Neg mg/dL (Negative) 12/19/18 14:55 Urine Ketones Neg mg/dL (Negative) 12/19/18 14:55 Urine Blood Neg (Negative) 12/19/18 14:55 Urine Nitrite Neg (Negative) 12/19/18 14:55 Urine Bilirubin Neg (Negative) 12/19/18 14:55 Urine Urobilinogen < 2.0 mg/dL (<2.0) 12/19/18 14:55 Ur Leukocyte Esterase Sm (Negative) 12/19/18 14:55 Urine WBC (Auto) 3.0 /HPF (0.0-6.0) 12/19/18 14:55 Urine RBC (Auto) < 1.0 /HPF (0.0-6.0) 12/19/18 14:55 U Epithel Cells (Auto) 1.0 /HPF (0-13.0) 12/19/18 14:55 Active Medications - Current Medications Current Medications: Generic Name Dose Route Start Last Admin Trade Name Freq PRN Reason Stop Dose Admin Acetaminophen 650 mg 12/20/18 08:00 12/23/18 17:34 Tylenol PO 325 mg Q4H PRN Administration Pain MILD(1-3)/Fever >100.5/MURILLO Albuterol 2.5 mg 12/21/18 21:55 12/21/18 22:01 Proventil IH 2.5 mg Q4HRT PRN Administration Shortness Of Breath Albuterol/Ipratropium 1 ampul 12/22/18 08:00 12/23/18 13:32 Duoneb *Not For Prn Use* IH 1 ampul TIDRT SANTI Administration Amlodipine Besylate 5 mg 12/20/18 10:00 12/23/18 09:00 Norvasc PO Not Given DAILY SANTI Benzonatate 100 mg 12/21/18 14:00 12/23/18 13:48 Tessalon Perles PO 100 mg Q8HR SANTI Administration Bisoprolol Fumarate 5 mg 12/20/18 10:00 12/23/18 09:00 Zebeta (Nf) PO Not Given [facility] Enoxaparin Sodium 30 mg 12/23/18 10:00 12/23/18 10:21 Lovenox SUB-Q 30 mg QDAY SANTI Administration Famotidine 10 mg 12/23/18 10:00 12/23/18 10:22 Pepcid PO 10 mg BID SANTI Administration Furosemide 20 mg 12/21/18 10:00 12/23/18 09:00 Lasix PO Not Given [facility] Hydralazine HCl 10 mg 12/22/18 17:39 12/22/18 18:25 Apresoline IV 10 mg Q4HR PRN Administration HTN >155/90 Ceftriaxone Sodium 2 gm in 100 mls @ 200 mls/hr 12/19/18 16:00 12/23/18 10:23 Rocephin/Ns 2 Gm/100 Ml IV 200 mls/hr Q24HR SANTI Administration Protocol Ondansetron HCl 4 mg 12/20/18 08:00 Zofran IV Q8H PRN Nausea And Vomiting Oxycodone/Acetaminophen 1 tab 12/20/18 08:00 12/22/18 19:57 Percocet 5/325 PO 1 tab Q6H PRN Administration Pain, Moderate (4-6) Pravastatin Sodium 20 mg 12/20/18 22:00 12/22/18 22:13 Pravachol PO 20 mg QHS SANTI Administration Sodium Chloride 10 ml 12/20/18 10:00 12/23/18 10:22 Sodium Chloride Flush Syringe 10 Ml IV 10 ml BID SANTI Administration Sodium Chloride 10 ml 12/20/18 08:00 Sodium Chloride Flush Syringe 10 Ml IV PRN PRN LINE FLUSH
[2018-12-23] MEDS: PRAVACHOL PO SCH (21:26)
[2018-12-24] MEDS: TESSALON PERLES PO SCH ×2 (06:29→13:22)
[2018-12-24 06:55] LABS: BUN/Creatinine Ratio 14; Blood Urea Nitrogen 7 mg/dL (7-17); Calcium 8.3 mg/dL (8.4-10.2); Hemolysis Index 2
--- NOTE | 2018-12-24 08:53 | Progress Note ---
Assessment and Plan Pneumonia Hypertension Hyponatremia An echocardiogram reveals a normal LV systolic function, EF 55-60%. Conservative cardiac management. Subjective Date of service: 12/24/18 Interval history: Patient is resting in bed comfortably. Objective Vital Signs Temp Pulse Pulse Pulse Resp Resp BP 12/24/18 07:47 99.5 F 108 H 18 137/66 12/24/18 02:49 100.1 F H 117 H 16 135/62 12/23/18 23:00 95 H 18 12/23/18 21:45 95 H 18 12/23/18 21:33 12/23/18 21:31 105 H 18 12/23/18 19:35 99.8 F H 91 H 16 141/68 12/23/18 17:34 20 12/23/18 13:47 65 20 12/23/18 13:33 67 20 12/23/18 13:28 99.1 F 95 H 18 130/61 Pulse Ox 12/24/18 07:47 96 12/24/18 02:49 95 12/23/18 23:00 97 12/23/18 21:45 12/23/18 21:33 97 12/23/18 21:31 12/23/18 19:35 96 12/23/18 17:34 12/23/18 13:47 12/23/18 13:33 12/23/18 13:28 97 - Physical Examination General: No Apparent Distress HEENT: Positive: PERRL Neck: Positive: trachea midline Cardiac: Positive: Reg Rate and Rhythm Lungs: Positive: Decreased Breath Sounds Neuro: Positive: Grossly Intact Extremities: Absent: edema - Labs and Meds Comprehensive Metabolic Panel 12/23/18 12/24/18 Range/Units 08:50 06:04 Sodium 125 L 127 L (137-145) mmol/L Potassium 3.7 3.4 L (3.6-5.0) mmol/L Chloride 92.7 L 90.0 L (98-107) mmol/L Carbon Dioxide 23 25 (22-30) mmol/L BUN 9 7 (7-17) mg/dL Creatinine 0.7 0.5 L (0.7-1.2) mg/dL Glucose 159 H 103 H (65-100) mg/dL Calcium 8.0 L 8.3 L (8.4-10.2) mg/dL
[2018-12-24] MEDS: PEPCID PO SCH (09:25)
[2018-12-24] MEDS: LOVENOX SUB-Q SCH (09:25)
[2018-12-24] MEDS: NORVASC PO SCH (09:25)
[2018-12-24] MEDS: LASIX PO SCH (09:25)
[2018-12-24] MEDS: ROCEPHIN/NS 2 GM/100 ML 2 GM/100 ML BAG IV SCH (09:26)
[2018-12-24] MEDS: ZEBETA PO SCH (09:26)
[2018-12-24] MEDS: SODIUM CHLORIDE FLUSH SYRINGE 10 ML IV SCH (09:27)
[2018-12-24] MEDS: DUONEB *Not for PRN Use IH SCH ×2 (09:37→14:27)
[2018-12-24] MEDS ORDERED: SODIUM CHLORIDE PO NR (10:00)
[2018-12-24] MEDS ORDERED: ZITHROMAX 500 MG in NACL 0.9% 250ML 250 ML IV SCH (11:00)
[2018-12-24] MEDS ORDERED: ELIQUIS PO SCH (11:30)
--- NOTE | 2018-12-24 12:53 | Discharge Summary ---
Providers - Providers Date of Admission: 12/19/18 17:11 Attending physician: DAREN MEDINA MD 12/20/18 09:09 Consult to Physician [CONS] Routine Comment: dr. garcia came and see the patient/luis carlos Consulting Provider: JIM WINKLER Physician Instructions: Reason For Exam: chf 12/20/18 10:40 Physical Therapy Evaluation and Treat [CONS] Routine Comment: Reason For Exam: weakness [facility] Reason for admission: pneumonia Condition: Stable Hospital course: 88-year-old [place] female with history of HTN, hyperlipidemia, and admitted through emergency room with nonproductive cough, congestion, and intermittent fever being managed possible pneumonia. On admission the patient was managed for community-acquired pneumonia with antibiotics. Patient was also based on history of recurrent admissions and review of imaging studies recommended to follow with restaurant hostess outpatient for possible underlying ILD. Patient to demonstrate hyponatremia this was also noted in prior admissions and remote history. At that time hydrochlorothiazide was discontinued with did proceed with discontinuation of Lasix after speaking with vacuum furnace operator. We did however request low-salt diet for the patient and also fluid restrictions. Patient's renal function remains stable recommended follow-up with content engineer outpatient also due to recurrent hyponatremia. She had atypical chest pain with cardiology evaluated and recommended conservative management at this time. She was noted to have ventricular fibrillation while in the hospital further discussion with family showed that there well sure about this diagnosis as a chronic diagnosis. Cardiology outpatient evaluation was recommended that he speak with vacuum furnace operator Dr Bowen, will change bisprolol to metoprolol 50mg po bid, also started on elquis 2.5mg po bid. counselling provided to family and risk of anticoagulant also recommended follow up with nephrology due to recurrent --Afib, with RVR --Atypical chest pain; secondary to costochondritis --Community-acquired pneumonia --Hyponatremia --Dyslipidemia --Hypertension --Gen. Debility --[id number] malnutrition /hypoalbuminemia nutrition supplements and supportive care Disposition: [id number] HOME [facility] Time spent for discharge: 35 mins Core Measure Documentation - Palliative Care Palliative Care/ Comfort Measures: Not Applicable - Core Measures Any of the following diagnoses?: none Exam - Physical Exam Narrative exam: General appearance: Present: no acute distress, well-nourished - EENT Eyes: Present: PERRL, EOM intact - Neck Neck: Present: supple, normal ROM - Respiratory Respiratory effort: normal Respiratory: bilateral: diminished, rales, negative: rhonchi, wheezing - Cardiovascular Rhythm: irregularly irregular Heart Sounds: Present: S1 & S2, - Extremities Extremities: no ischemia, No edema - Abdominal General gastrointestinal: soft, non-tender, non-distended, normal bowel sounds - Integumentary Integumentary: Present: clear, warm - Psychiatric Psychiatric: appropriate mood/affect, cooperative - Neurologic Neurologic: CNII-XII intact, moves all extremities - Constitutional Vitals: Temp Pulse Resp BP Pulse Ox 99.5 F 107 H 16 133/66 98 12/24/18 07:47 12/24/18 09:47 12/24/18 09:47 12/24/18 09:26 12/24/18 09:37 Plan Activity: advance as tolerated, fall precautions Diet: low fat, low salt Special Instructions: record daily weights, record daily BP diary Additional Instructions: patient should repeat Basic metabolic profile in 3 days to ensure improved sodium level. this can be done with any of her doctors [facility] - 3-5 Days TEVIN GARCIA MD [Staff Physician] - 7 Days MISAEL MATT MD [Staff Physician] - 7 Days NINO BOWENS MD [Staff Physician] - 7 Days Prescriptions: Pravastatin [Pravachol] 20 mg PO QHS #30 tablet Albuterol Sulfate [Albuterol 0.63% NEBS] 0.63 mg IH TID PRN #90 ml PRN Reason: Wheezing Apixaban [Eliquis] 2.5 mg PO Q12HR #60 tablet levoFLOXacin [Levaquin TAB] 500 mg PO QDAY #5 tablet Metoprolol [Lopressor TAB] 50 mg PO BID #60 tablet Famotidine [Pepcid] 10 mg PO BID #60 tablet guaiFENesin/DEXTROMETHORPHAN [Robitussin Cough-Chest Dm Liq] 237 ml PO TID PRN 5 Days liquid PRN Reason: Cough Other Discharge Orders: Nebulizer (Amb) Location: None Selected
[2018-12-24] MEDS ORDERED: K-DUR PO ONE (13:39)
[2018-12-24 17:52] VITALS: BP 136/80
[2018-12-24] MEDS ORDERED: LOPRESSOR PO SCH (22:00)
== END 2018-12-24 15:00 | disposition home health service (06) | DRG 640 ==
LOC: ED 14:08 → 2B-ACE 17:11
PROVIDERS: ADMIT Internal Medicine; ATTEND Internal Medicine
DX: E87.1 Hypo-osmolality and hyponatremia (principal); J18.9 Pneumonia, unspecified organism; E44.0 Moderate protein-calorie malnutrition; J98.01 Acute bronchospasm; E87.5 Hyperkalemia; F03.90 Unspecified dementia, unspecified severity, without behavioral disturbance, psychotic disturbance, mood disturbance, and anxiety; E78.5 Hyperlipidemia, unspecified; R07.89 Other chest pain; E87.0 Hyperosmolality and hypernatremia; Z98.42 Cataract extraction status, left eye; Z98.41 Cataract extraction status, right eye; Z68.23 Body mass index [BMI] 23.0-23.9, adult
CPT/HCPCS: 36415; 70450; 71046; 80048; 80053; 81001; 82140; 82550; 82553; 83735; 83880; 84100; 84484; 85007; 85025; 87040; 93005; 93010; 93306; 94640; 94760; G0378; A9270-GY; J0360; J0456; J0696; J1650; J1940; J7030; J7040; J7050

== ENCOUNTER 2019-02-24 09:46 | Outpatient (CLI) | payer MEDICARE ==
[2019-02-24 10:23] LABS: Hematocrit 40.5 % (30.3-42.9); Hemoglobin 13.8 gm/dl (10.1-14.3); Mean Corpuscular HGB Conc 34 % (30-34); Mean Corpuscular Volume 91 fl (79-97); Platelet Count 319 K/mm3 (140-440); Red Blood Count 4.44 M/mm3 (3.65-5.03); Red Cell Distribution Width 14.2 % (13.2-15.2)
[2019-02-24 10:58] LABS: Alanine Aminotransferase 15 units/L (7-56); Albumin 3.4 g/dL (3.9-5); BUN/Creatinine Ratio 13; Blood Urea Nitrogen 9 mg/dL (7-17); Calcium 8.4 mg/dL (8.4-10.2); Chol/HDL Ratio 2.96 %; HDL Cholesterol 65 mg/dL (40-59); Hemolysis Index 3; LDL Cholesterol,Direct 115 mg/dL (50-130)
--- NOTE | 2019-02-24 11:32 | Vascular Lab Report ---
PROCEDURE: VL VENOUS DUPLEX LE BILAT TECHNIQUE: Duplex Doppler sonography of the BILATERAL lower extremities. Mann scale imaging with and without compression, spectral waveform analysis with and without augmentation, and color flow Dopple r were employed. HISTORY: SWELLING COMPARISONS: None FINDINGS: RIGHT lower EXTREMITY: Deep Venous Thrombus: None Superficial Venous Thrombus: None Venous valvular incompetence: None Soft tissue abnormality: None LEFT lower EXTREMITY: Deep Venous Thrombus: None Superficial Venous Thrombus: None Venous valvular incompetence: None Soft tissue abnormality: None IMPRESSION: No evidence of deep venous thrombosis. This document is electronically signed by Miranda Bassett MD., February 24 2019 11:30:29 AM ET
--- NOTE | 2019-02-24 19:02 | Cat Scan Report ---
PROCEDURE: CT ANGIO CHEST TECHNIQUE: Computerized tomographic angiography of the chest was performed after the IV injection of iodinated nonionic contrast including image processing. The image data was postprocessed using 2-di mensional multiplanar reformatted (MPR) and 3-dimensional (MIP and/or volume rendered) techniques. Au tomated exposure control, adjustment of mA and/or kV according to patient size, or iterative reconstr uction dose optimization techniques were utilized. CT DOSE LENGTH PRODUCT: 277.7 mGycm HISTORY: Shortness of breath COMPARISONS: 09/24/2013 . FINDINGS: Heart and pericardium: Coronary artery calcification. No pericardial effusion or thickening. Thoracic aorta: There is atherosclerotic calcification of the aorta. Mild stable ectasia of the asce nding aorta. Pulmonary vasculature: Normal. Lymph nodes: No enlarged thoracic lymph nodes. Lungs: Bibasilar mild pulmonary scarring. 3 mm inferior right middle lobe nodule. 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 Pleural space: No effusion, thickening, or pneumothorax. Musculoskeletal structures: No significant abnormality. Upper abdominal structures: Mild fatty infiltration of the liver. IMPRESSION: No evidence of pulmonary emboli . This document is electronically signed by Adriane Romero MD., February 24 2019 07:00:29 PM ET
[2019-02-26 22:29] LABS: ANA Screen, IFA Positive (Negative)
[2019-02-27 20:44] LABS: Myeloperoxidase Antibody <1.0 AI (<1.0)
== END 2019-02-24 09:47 | disposition home or self-care (01) ==
LOC: VAS 09:46
PROVIDERS: ATTEND Internal Medicine
DX: I25.10 Atherosclerotic heart disease of native coronary artery without angina pectoris (principal); I77.819 Aortic ectasia, unspecified site; K21.9 Gastro-esophageal reflux disease without esophagitis; R60.0 Localized edema
CPT/HCPCS: 36415; 71275; 80053; 80061; 82785; 84436; 84443; 85027; 86021; 86038; 86618; 93970; Q9967